=== PATIENT | female | born 1960 | race Caucasian/White ===

== ENCOUNTER 2018-11-27 12:56 | Inpatient (IN) | payer MEDICARE, OTHER, MEDICAID ==
[2018-11-27] MEDS ORDERED: NS 0.9% 1000 ML* 1,000 ML IV ONE (13:38)
[2018-11-27] MEDS ORDERED: Piperacillin/Tazobac ADVAN(*) 3.375 GM in NS 0.9% 100 ML* 100 ML IVPB ONE (13:41)
--- NOTE | 2018-11-27 13:54 | ED ---
Respiratory - HPI Summary HPI Summary: A 58 y/o female acccompanied by an aid presents to the ED c/o SOB and cough. In the ED room, the patient has a pulse of 108 BPM, O2 saturation of 93%, and respiration of 20. As per triage, "Pt has had cough and congestion for a few weeks, today pt sounds the worst, pt's aide states". According to the nurse, the patient sounded very congested for the past couple weeks, however, early this morning the patient had trouble breathing and sounded like she has lots of mucous. Patient's aid denies any fever. [facility] Service: Patient sounds very phlegmy/raspy, slight SOB. LEVEL 5 CAVEAT. Home Medications Medication Instructions Recorded Confirmed Type Aspirin EC TAB* [Ecotrin EC TAB*] 325 mg PO DAILY 11/27/18 11/27/18 History Bacitracin OINTMENT DIANN* 1 applic TOPICAL DAILY PRN 11/27/18 11/27/18 History Calamine LOTION* 1 applic .SEE ORDER BID 11/27/18 11/27/18 History Calcium Carbonate/Vitamin D3 1 each PO BID 11/27/18 11/27/18 History [Calcium 600 + Vit D Tablet] Clindamycin 1% TOPICAL(NF) 1 % EX BID 11/27/18 11/27/18 History [Cleocin-T 1% TOPICAL(NF)] Diazepam TAB(*) [Valium TAB(*)] 7.5 mg PO TID PRN 11/27/18 11/27/18 History Gabapentin CAP(*) [Neurontin 100 200 mg PO BEDTIME 11/27/18 11/27/18 History mg CAP(*)] Levothyroxine TAB* [Synthroid TAB*] 50 mcg PO DAILY 11/27/18 11/27/18 History Mometasone Furoate 0.1 % EX DAILY PRN 11/27/18 11/27/18 History Ofloxacin 0.3% (Ear Drop)* [Floxin 2 drop OTIC WEEKLY 11/27/18 11/27/18 History 0.3% OTIC.NABOR (Ear Drop)] Polyethylene Glycol 3350 BTL* 17 gm PO ONCE 11/27/18 11/27/18 History [Miralax] Raloxifene HCl [Evista] 60 mg PO DAILY 11/27/18 11/27/18 History diPHENhydraMINE PO* [Benadryl PO 25 mg PO Q6H PRN 11/27/18 11/27/18 History 25 MG TAB*] guaiFENesin/CODIEN 100MG-10MG* 10 ml PO Q6H PRN 11/27/18 11/27/18 History [Robitussin AC 100Mg-10Mg*] oxyCODONE TAB* [Roxycodone TAB 5 5 mg PO Q6H PRN 11/27/18 11/27/18 History mg*] - History of Current Complaint Chief Complaint: EDRespiratoryDistress Stated Complaint: DIFF BREATHING Time Seen by Provider: 11/27/18 13:17 Hx Obtained From: Family/Armament Mechanic - AID Hx From Patient Unobtainable Due To: Other - PATIENT HAS DOWN SYNDROME. Pain Intensity: 0 - Allergy/Home Medications Allergies/Adverse Reactions: Allergies Allergy/AdvReac Type Severity Reaction Status Date / Time Cephalosporins Allergy Rash Verified 11/27/18 13:46 ciprofloxacin [From Cipro] Allergy Rash Verified 11/27/18 13:46 erythromycin base Allergy Rash Verified 11/27/18 13:46 Macrolide Antibiotics Allergy Rash Verified 11/27/18 13:46 Penicillins Allergy Rash Verified 11/27/18 13:46 sulfamethizole Allergy Rash Verified 11/27/18 13:46 sulfamethoxazole Allergy Rash Verified 11/27/18 13:46 [From Bactrim] trimethoprim [From Bactrim] Allergy Rash Verified 11/27/18 13:46 Home Medications: Home Medications Aspirin EC TAB* [Ecotrin EC TAB*] 325 mg PO DAILY 11/27/18 [History Confirmed ] Bacitracin OINTMENT DIANN* 1 applic TOPICAL DAILY PRN 11/27/18 [History Confirmed 11/27/18] Calamine LOTION* 1 applic .SEE ORDER BID 11/27/18 [History Confirmed 11/27/18] Calcium Carbonate/Vitamin D3 [Calcium 600 + Vit D Tablet] 1 each PO BID [History Confirmed 11/27/18] Clindamycin 1% TOPICAL(NF) [Cleocin-T 1% TOPICAL(NF)] 1 % EX BID 11/27/18 [ History Confirmed 11/27/18] Diazepam TAB(*) [Valium TAB(*)] 7.5 mg PO TID PRN 11/27/18 [History Confirmed ] Gabapentin CAP(*) [Neurontin 100 mg CAP(*)] 200 mg PO BEDTIME 11/27/18 [History Confirmed 11/27/18] Levothyroxine TAB* [Synthroid TAB*] 50 mcg PO DAILY 11/27/18 [History Confirmed 11/27/18] Mometasone Furoate 0.1 % EX DAILY PRN 11/27/18 [History Confirmed 11/27/18] Ofloxacin 0.3% (Ear Drop)* [Floxin 0.3% OTIC.NABOR (Ear Drop)] 2 drop OTIC WEEKLY 11/27/18 [History Confirmed 11/27/18] Polyethylene Glycol 3350 BTL* [Miralax] 17 gm PO ONCE 11/27/18 [History Confirmed 11/27/18] Raloxifene HCl [Evista] 60 mg PO DAILY 11/27/18 [History Confirmed 11/27/18] diPHENhydraMINE PO* [Benadryl PO 25 MG TAB*] 25 mg PO Q6H PRN 11/27/18 [History Confirmed 11/27/18] guaiFENesin/CODIEN 100MG-10MG* [Robitussin AC 100Mg-10Mg*] 10 ml PO Q6H PRN 04/10 [History Confirmed 11/27/18] oxyCODONE TAB* [Roxycodone TAB 5 mg*] 5 mg PO Q6H PRN 11/27/18 [History Confirmed 11/27/18] PMH/Surg Hx/FS Hx/Imm Hx Endocrine/Hematology History: Reports: Hx Thyroid Disease - HYPO Denies: Hx Diabetes Cardiovascular History: Reports: Hx Coronary Artery Disease - ON MEDS, Other Cardiovascular Problems/Disorders - HIGH CHOLESTEROL Denies: Hx Hypertension, Hx Pacemaker/ICD, Hx Valvular Heart Disease Respiratory History: Denies: Other Respiratory Problems/Disorders History: Denies: Hx Renal Disease Musculoskeletal History: Reports: Hx Osteoporosis Denies: Hx Rheumatoid Arthritis Sensory History: Reports: Hx Cataracts - JAMES, Hx Contacts or Glasses - GLASSES, Hx Hearing Aid - BONE 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 CATARACTS. Psychiatric History: Reports: Hx Anxiety Denies: Hx Panic Disorder - Surgical History Surgery Procedure, Year, and Place: multiple sx on ears(TUBES) , nose and throat. LAST 1990. HYSTERECTOMY, 1977. Lt THIGH - BOIL REMOVED Hx Anesthesia Reactions: No Infectious Disease History: No Infectious Disease History: Denies: Traveled Outside the [place] in Last 30 Days - Family History Known Family History: Positive: Unknown - HX UNOBTAINABLE FROM PATIENT. AID IS NOT SURE. - Social History Alcohol Use: None Substance Use Type: Reports: None Smoking Status (MU): Never Smoked Tobacco Have You Smoked in the Last Year: No Review of Systems Negative: Fever Positive: Shortness Of Breath, Cough, Other - POSITIVE: CONGESTION All Other Systems Reviewed And Are Negative: No Physical Exam - Summary Physical Exam Summary: VITAL SIGNS: Reviewed. GENERAL: Patient is elderly wheel-chair bound female who is lying comfortable in the stretcher. Patient is having some difficulty breathing. HEAD AND FACE: No signs of trauma. No ecchymosis, hematomas or skull depressions. No sinus tenderness. EYES: PERRLA, EOMI x 2, No injected conjunctiva, no nystagmus. EARS: Hearing grossly intact. Ear canals and tympanic membranes are within normal limits. MOUTH: Oropharynx within normal limits. NECK: Supple, trachea is midline, no adenopathy, no JVD, no carotid bruit, no c- spine tenderness, neck with full ROM. CHEST: Symmetric, no tenderness at palpation LUNGS: Bilateral respiratory distress. Crackles in bases of both lungs. CVS: Regular rate and rhythm, S1 and S2 present, no murmurs or gallops appreciated. ABDOMEN: Soft, non-tender. No signs of distention. No rebound no guarding, and no masses palpated. Bowel sounds are normal. EXTREMITIES: FROM in all major joints, no edema, no cyanosis or clubbing. NEURO: Alert and oriented x 3. No acute neurological deficits. Speech is normal and follows commands. SKIN: Dry and warm LEVEL 5 CAVEAT Triage Information Reviewed: Yes Vital Signs On Initial Exam: Initial Vitals Temp Pulse Resp BP Pulse Ox 96.9 F 95 18 105/53 92 11/27/18 12:59 11/27/18 12:59 11/27/18 12:59 11/27/18 12:59 11/27/18 12:59 Vital Signs Reviewed: Yes Diagnostics - Vital Signs Vital Signs Temp Pulse Resp BP Pulse Ox 11/27/18 12:59 96.9 F 95 18 105/53 92 - Laboratory Result Diagrams: 11/28/18 06:51 11/27/18 14:00 Lab Statement: Any lab studies that have been ordered have been reviewed, and results considered in the medical decision making process. - Radiology CXR Radiology Interpretation Completed By: Radiologist Summary of Radiographic Findings: GROSSLY CLEAR LUNGS BILATERALLY LIMITED BY PATIENT POSITIONING AND INCOMPLETE INSPIRATORY EFFORT. ED PHYSICIAN REVIEWED THIS RADIOLOGY REPORT. - EKG 1514 Cardiac Rate: Tachycardia - 107 BPM EKG Rhythm: Sinus Tachycardia - 107 BPM Summary of EKG Findings: NO ST ELEVATIONS. Disposition - Course Assessment/Plan: A 58 y/o female accompanied by an aid presents to the ED c/o SOB and cough. In the ED room, the patient has a pulse of 108 BPM, O2 saturation of 93%, and respiration of 20. As per triage, "Pt has had cough and congestion for a few weeks, today pt sounds the worst, pt's aide states". According to the nurse, the patient sounded very congested for the past couple weeks, however, early this morning the patient had trouble breathing and sounded like she has lots of mucous. Patient's aid denies any fever. [facility]: Patient sounds very phlegmy/raspy, slight SOB. Blood work shows WBCs of 18.6, hemoglobin 16, hematocrit 48 and platelets 194. Leukocytes 128 AST of 60. Name T of 79. CRP is only 6.19. Influenza A and B is negative. Chest x-ray impression: Grossly clear lung bilateral limited by the patient positioning and incomplete inspiratory effort. I believe that the patient may have had an aspiration pneumonitis. Therefore the patient was placed in IV fluids 30 ccs per KG since the patient may be sepsis criteria and she was started on Zosyn. It is documented the patient is allergic to penicillin however she has multiple allergies therefore we get associated, we close monitored and the patient did not develop any allergic reaction. At this point I discussed my physical exam, findings and test results with Dr. Salvador from the hospital services who accepted the patient for admission. The patient is more stable at admission time. - Diagnoses Provider Diagnoses: Aspiration pneumonitis, Sepsis - Physician Notifications Discussed Care Of Patient With: Santi Salvador Time Discussed With Above Provider: 14:53 Instructed by Provider To: Other - ACCEPTS PATIENT FOR ADMISSION. - Critical Care Time Critical Care Time: 30-74 min Discharge - Sign-Out/Discharge Documenting (check all that apply): Patient Departure - ADMIT, Sign-Out Patient - [place] Signing out patient TO: Santi Modesto Receiving patient FROM: Maco Felix - Discharge Plan Condition: Stable Disposition: ADMITTED TO [facility] - Billing Disposition and Condition Condition: STABLE Disposition: Admitted to [facility] - Attestation Statements Document Initiated by Scribe: Yes Documenting Scribe: Martin Cortez Provider For Whom Scribe is Documenting (Include Credential): Maco Felix MD Scribe Attestation: Martin Hernandez, scribed for Maco Felix MD on 11/28/18 at 0904. Scribe Documentation Reviewed: Yes Provider Attestation: The documentation as recorded by the scribeMartin accurately reflects the service I personally performed and the decisions made by me, Maco Fleix MD Status of Scribe Document: Viewed Attestations Scribe Attestation: IDr. Felix personally performed the services described in this documentation as scribed in my presence and it is both accurate and complete. User Type: Provider with Scribe Provider Attestation: The documentation recorded by the scribe accurately reflects the service I personally performed and the decisions made by me.
[2018-11-27 14:12] LABS: Hematocrit 48 % (35-47); Mean Corpuscular HGB Conc 33 g/dl (31-36); Mean Corpuscular Hemoglobin 36 pg (27-31); Mean Corpuscular Volume 107 fL (80-97); Mean Platelet Volume 8.6 fL (7.4-10.4); Platelet Count 194 10^3/ul (150-450); Red Cell Distribution Width 15 % (10.5-15); White Blood Count 18.6 10^3/ul (3.5-10.8)
[2018-11-27 14:26] LABS: Albumin 3.5 g/dL (3.2-5.2); Albumin/Globulin Ratio 1.2 (1-3); BUN/Creatinine Ratio 24.6 (8-20); C Reactive Protein 6.19 mg/L (<8.01); Calcium 8.7 mg/dL (8.6-10.3); EGFR Non-African American 101.5 (>60); Total Bilirubin 0.3 mg/dL (0.2-1.0); Total Protein 6.5 g/dL (6.4-8.9)
[2018-11-27 14:38] LABS: ABS Basophils 0 10^3/ul (0-0.2); ABS Eosinophils 0 10^3/ul (0-0.6); ABS Lymphocytes 1.3 10^3/ul (1.0-4.8); ABS Monocytes 1.4 10^3/ul (0-0.8); ABS Neutrophils 15.9 10^3/ul (1.5-7.7); ABS Nucleated RBC 0 10^3/ul; Eosinophil % 0.2 %; Lymphocyte % 6.9 %; Nucleated Red Blood Cells % 0.2
[2018-11-27 15:07] LABS: Potassium 4.7 mmol/L (3.5-5.0)
[2018-11-27] MEDS ORDERED: oxyCODONE TAB* 5 MG TAB PO PRN (15:37)
[2018-11-27] MEDS ORDERED: diPHENhydraMINE PO* 25 MG PO PRN (15:37)
[2018-11-27] MEDS ORDERED: guaiFENesin/CODIEN 100MG-10MG* 5 ML UDC PO PRN (15:37)
[2018-11-27] MEDS ORDERED: Bacitracin OINTMENT PAK TOPICAL PRN (15:37)
[2018-11-27] MEDS ORDERED: Diazepam TAB(*) 5 MG PO PRN (15:37)
[2018-11-27] MEDS ORDERED: Triamcinolone 0.025% OINT * 15 GM TUBE TOPICAL PRN (15:37)
[2018-11-27] MEDS ORDERED: Ofloxacin 0.3% (Ear Drop)* 5 ml BTL SCH (16:00)
[2018-11-27] MEDS ORDERED: Polyethylene Glycol 3350* 17 GM PACKET PO ONE (16:00)
[2018-11-27 17:22] LABS: Urine Appearance Cloudy; Urine Bilirubin Negative (Negative); Urine Blood Negative (Negative); Urine Color Yellow; Urine Glucose Negative (Negative); Urine Ketones Negative (Negative); Urine Nitrite Negative (Negative); Urine Protein Negative (Negative); Urine Specific Gravity 1.016 (1.010-1.030); Urine Urobilinogen Negative (Negative)
--- NOTE | 2018-11-27 17:52 | HP ---
CC: Dr. Irving Yee HISTORY AND PHYSICAL: DATE OF ADMISSION: 11/27/18 PRIMARY CARE PROVIDER: Dr. Irving Yee. CHIEF COMPLAINT: Cough and congestion for a few weeks. HISTORY OF PRESENT ILLNESS: This is a 58-year-old female with past medical history significant for Down syndrome, nonverbal, OCD, hypothyroidism, neuropathy, left occipital stroke, who has been living at a [place] [facility] [place], she is completely dependent for her activities of daily living, who was brought in [place] the [place] [facility] [place] because of cough and congestion. Staff member from the [place] [facility] [place] is present, history cannot be obtained from the patient and is therefore obtained from the staff member. They report that the patient has been having cough and congestion for several weeks; however, they did not note any fever or trouble breathing. They brought her to the hospital now because the symptoms are not getting better and have been progressive. It is hard to get a full history as the patient is nonverbal and is not communicative due to Down syndrome. PAST MEDICAL HISTORY: 1. Down syndrome. 2. OCD. 3. Hypothyroidism. 4. Hyperlipidemia. 5. Left occipital stroke. 6. Right peroneal neuropathy. 7. Nonverbal state. 8. Osteoporosis. PAST SURGICAL HISTORY: Hysterectomy. MEDICATIONS: Home medications include: 1. Calcium carbonate 600 mg/vitamin D tablet twice a day. 2. Aspirin 325 mg daily. 3. Bacitracin ointment topical. 4. Calamine lotion as needed. 5. Clindamycin topical twice a day. 6. Diazepam 5 mg. 7. Valium tablet 7.5 mg 3 times a day. 8. Benadryl 25 mg every 6 hours as needed. 8. Gabapentin 200 mg at bedtime. 9. Guaifenesin/codeine 10 mL every 6 hours as needed. 10. Levothyroxine 50 mcg daily. 11. Mometasone furoate 15 g cream as needed. 12. Ofloxacin 0.3% ear drops 2 drops twice daily both ears. 13. Oxycodone 5 mg every 6 hours as needed for pain. 14. Polyethylene glycol 17 g as needed. 15. Raloxifene 60 mg daily for osteoporosis. FAMILY HISTORY: Cannot be obtained as the patient cannot give history. SOCIAL HISTORY: The patient is from a [place], does not smoke, no use of alcohol or drugs. The patient is not , does not work. REVIEW OF SYSTEMS: Cannot be obtained due to the patient being nonverbal. PHYSICAL EXAMINATION GENERAL APPEARANCE: She is awake and alert, noncommunicative, sitting on a chair, in no acute distress. VITAL SIGNS: Blood pressure of 105/53, heart rate of 95, respiratory rate of 18 , pulse ox of 92% on room air, temperature of 96.9 Fahrenheit temporal. HEENT: Pupils equal, round, reactive to light. Oral mucosa is dry. RESPIRATORY: She was placed on oxygen at 2 L nasal cannula. Effort is normal. No use of accessory muscles. Coarse breath sounds with scattered rhonchi. CARDIAC: Regular rate and rhythm. No murmurs. Dorsalis pedis 2+ bilaterally. No lower extremity edema. ABDOMEN: Bowel sounds are normoactive in all 4 quadrants. Abdomen is soft, nontender, nondistended. MUSCULOSKELETAL: There is no clubbing, cyanosis, or edema. NEUROLOGICAL: Cannot be fully distinguished. The patient is awake and alert. Cannot determine orientation as the patient is nonverbal, does not exactly follow commands. SKIN: No rashes. DIAGNOSTIC STUDIES/LAB DATA: WBC of 18.6, hemoglobin of 16, hematocrit of 48, platelets of 194. Sodium of 137, potassium of 4.7, chloride of 104, bicarbonate of 26, BUN of 15, creatinine of 0.61, glucose of 128, lactic acid of 1.2. AST 63, ALT of 79. , CRP of 6.19, BNP of 94. Albumin of 3.5. Influenza A and B are negative. Chest x-ray shows clear lungs bilaterally, limited by the patient's positioning and incomplete respiratory effort. EKG shows sinus tachycardia. ASSESSMENT AND PLAN: This is a 58-year-old female, with Down syndrome, nonverbal, who presents to the emergency room because of cough and congestion persistent for the past 2 weeks. The patient is nonverbal, she requires puree with honey- thickened liquid spoon fed. 1. Cough and congestion. The patient does have leukocytosis. She is requiring some oxygen currently. We will start the patient on Zosyn for possible aspiration pneumonia/pneumonitis. We will check the patient's sputum culture, blood culture has been sent. 2. Nonverbal state/Down syndrome. Continue supportive care, honey-thickened diet with pureed diet. 3. Unspecified hypothyroidism. Continue levothyroxine. 4. Neuropathy. Continue gabapentin. 5. History of left occipital stroke. Continue aspirin. 6. Continue other home medications. 7. DVT prophylaxis: We will start the patient on stockings. [id number]/[facility] #: [id number] JOSH
[2018-11-27] MEDS: NS 0.9% 1000 ML* 1,000 ML IV SCH (17:55)
[2018-11-27] MEDS: Piperacillin/Tazobac ADVAN(*) 3.375 GM in NS 0.9% 100 ML* 100 ML IVPB SCH (18:31)
[2018-11-27] MEDS: Calamine LOTION* 120 ML SCH (21:44)
[2018-11-27] MEDS: Clindamycin 1% TOPICAL(NF) TOPICAL SCH (22:09)
[2018-11-27] MEDS: Gabapentin CAP(*) 100 MG PO SCH (22:10)
[2018-11-28] MEDS: Albuterol/Ipratropium NEB.SOL* Albuterol 2.5 MG/Ipratropium 0.5 MG 3 ML INH SCH ×4 (01:02→18:05)
[2018-11-28] MEDS: Piperacillin/Tazobac ADVAN(*) 3.375 GM in NS 0.9% 100 ML* 100 ML IVPB SCH ×3 (02:07→18:21)
[2018-11-28] MEDS: Levothyroxine TAB* 50 MCG TAB PO SCH ×2 (05:39→07:51)
[2018-11-28 07:30] LABS: ABS Basophils 0 10^3/ul (0-0.2); ABS Eosinophils 0 10^3/ul (0-0.6); ABS Lymphocytes 1.2 10^3/ul (1.0-4.8); ABS Monocytes 1.7 10^3/ul (0-0.8); ABS Neutrophils 18.5 10^3/ul (1.5-7.7); ABS Nucleated RBC 0 10^3/ul; Eosinophil % 0 %; Hematocrit 45 % (35-47); Lymphocyte % 5.7 %; Mean Corpuscular HGB Conc 33 g/dl (31-36); Mean Corpuscular Hemoglobin 35 pg (27-31); Mean Corpuscular Volume 106 fL (80-97); Mean Platelet Volume 8.8 fL (7.4-10.4); Nucleated Red Blood Cells % 0.1; Platelet Count 182 10^3/ul (150-450); Red Blood Count 4.27 10^6/ul (4.00-5.40); Red Cell Distribution Width 15 % (10.5-15); White Blood Count 21.5 10^3/ul (3.5-10.8)
[2018-11-28] MEDS: Calamine LOTION* 120 ML SCH (07:35)
[2018-11-28] MEDS: Clindamycin 1% TOPICAL(NF) TOPICAL SCH (07:36)
[2018-11-28] MEDS: RALOXIFENE 60 MG PO SCH (07:52)
[2018-11-28] MEDS: Aspirin EC TAB* 325 MG PO SCH (07:52)
[2018-11-28] MEDS ORDERED: NS 0.9% 1000 ML* 1,000 ML IV ONE (11:59)
--- NOTE | 2018-11-28 12:14 | PN ---
Subjective Date of Service: 11/28/18 Interval History: Case discussed with nurse, having copious suction. Objective Active Medications: Albuterol/Ipratropium (Duoneb (Albuterol 2.5 Mg/Ipratropium 0.5 Mg)) 1 neb INH RT.[id number] AWAKE [facility] Last Admin: 11/28/18 06:13 Dose: 1 neb Aspirin (Ecotrin Ec Tab*) 325 mg PO DAILY [facility] Last Admin: 11/28/18 07:52 Dose: 325 mg Bacitracin (Bacitracin Ointment Santiago*) 1 applic TOPICAL DAILY PRN PRN Reason: RASH Calamine (Calamine Lotion*) 1 applic .SEE ORDER BID [facility] Last Admin: 11/28/18 07:35 Dose: Not Given Clindamycin Phosphate (Cleocin-T 1% Topical(Nf)) 1 applic TOPICAL BID [facility] Last Admin: 11/28/18 07:36 Dose: Not Given Diazepam (Valium Tab(*)) 7.5 mg PO TID PRN PRN Reason: AGITATION Diphenhydramine HCl (Benadryl Po*) 25 mg PO Q6H PRN PRN Reason: Allergy Symptoms Gabapentin (Neurontin Cap(*)) 200 mg PO BEDTIME [facility] Last Admin: 11/27/18 22:10 Dose: Not Given Guaifenesin/Codeine Phosphate (Robitussin Ac 100mg-10mg*) 10 ml PO Q6H PRN PRN Reason: COUGH Sodium Chloride (Ns 0.9% 1000 Ml*) 1,000 mls @ 75 mls/hr IV Q8H [facility] Last Admin: 11/27/18 17:55 Dose: 75 mls/hr Piperacillin Sod/Tazobactam (Sod 3.375 gm/ Sodium Chloride) 100 mls @ 25 mls/ hr IVPB Q8H [facility] Last Admin: 11/28/18 10:34 Dose: 25 mls/hr Sodium Chloride (Ns 0.9% 1000 Ml*) 1,000 mls @ 1,000 mls/hr IV .PER RATE ONE Stop: 11/28/18 12:58 Vancomycin HCl 1,000 mg/ (Sodium Chloride) 250 mls @ 166.667 mls/hr IVPB ONCE [facility]; Protocol Stop: 11/28/18 23:59 Levothyroxine Sodium (Synthroid Tab*) 50 mcg PO 0600 [facility] Last Admin: 11/28/18 07:51 Dose: 50 mcg Ofloxacin (Floxin 0.3% Otic.Maricruz*) 2 drop .SEE ORDER WEEKLY [facility] Oxycodone HCl (Roxycodone Tab*) 5 mg PO Q6H PRN PRN Reason: PAIN Pharmacy Consult (Vancomycin Per Pharmacy*) 1 note FOLLOW UP .VANC PER PHARMACY [facility] Raloxifene HCl (Evista(Nf)) 60 mg PO DAILY [facility]; Protocol Last Admin: 11/28/18 07:52 Dose: 60 mg Triamcinolone Acetonide (Triamcinolone 0.025% Oint *) 1 applic TOPICAL DAILY PRN PRN Reason: RASH Vital Signs - 8 hr 11/28/18 11/28/18 11/28/18 06:19 07:00 07:39 Temperature 99.3 F Pulse Rate 108 92 116 Respiratory 18 102 Rate Blood Pressure 96/50 (mmHg) O2 Sat by Pulse 92 22 94 Oximetry 11/28/18 11/28/18 11/28/18 08:00 08:13 08:41 Temperature 98.8 F Pulse Rate 103 Respiratory 37 38 Rate Blood Pressure (mmHg) O2 Sat by Pulse 94 92 Oximetry Oxygen Devices in Use Now: Large Volume Nebulizer Appearance: Lying in bed, not in distress, slighlty diaphoretic Respiratory: - - coarse breath sounds with diffuse rhonchi, having copious secretions suctioned Cardiovascular: RRR Abdominal: NL Sounds; No Tenderness; No Distention Extremities: No Edema Result Diagrams: 11/28/18 06:51 11/27/18 14:00 Microbiology and Other Data: Microbiology 11/27/18 18:00 Nasal Screen MRSA (PCR) - Final Nasal Mrsa Not Detected 11/27/18 13:39 Influenza Types A,B Antigen - Final Nasal Specimen received for Influenza A/B Molecular testing Assess/Plan/Problems-Billing Assessment: - Patient Problems (1) Sepsis due to pneumonia Current Visit: Yes Status: Acute Code(s): J18.9 - PNEUMONIA, UNSPECIFIED ORGANISM; A41.9 - SEPSIS, UNSPECIFIED ORGANISM SNOMED Code(s): 07347915 Comment: SLighlty worse today, continue zosyn Day 2, added vancomycin today. asked RN to send secretion for culture. one liter IV bolus ordered. Will get cxr tomorrow 'blood culture negative thus far. (2) Down syndrome Current Visit: Yes Status: Acute Code(s): Q90.9 - DOWN SYNDROME, UNSPECIFIED SNOMED Code(s): 46313393 Comment: supportive care, non-verbal, dependent patient. puree diet/honey thickended spoon fed. (3) Hypothyroid Current Visit: Yes Status: Acute Code(s): E03.9 - HYPOTHYROIDISM, UNSPECIFIED SNOMED Code(s): 15892727 Comment: on levothyroxine (4) History of stroke Current Visit: Yes Status: Acute Code(s): Z86.73 - PRSNL HX OF TIA (TIA), AND CEREB INFRC W/O RESID DEFICITS SNOMED Code(s): 912538924 Comment: On aspirin (5) DVT prophylaxis Current Visit: Yes Status: Acute Code(s): EUW2533 - SNOMED Code(s): 372543944
[2018-11-28] MEDS ORDERED: Vancomycin per Pharmacy* NOTE FOLLOW UP SCH (13:00)
[2018-11-28] MEDS: NS 0.9% 1000 ML* 1,000 ML IV SCH (13:14)
[2018-11-28] MEDS: Vancomycin(*) 1,000 MG in NS 0.9% 250 ML* 250 ML IVPB ONE ×2 (13:14→15:10)
[2018-11-28] MEDS ORDERED: Vancomycin(*) 1,000 MG in NS 0.9% 250 ML* 250 ML IVPB ONE (14:30)
[2018-11-28] MEDS ORDERED: Morphine INJ* 2 MG/ML 1 ML SYRINGE (TWO MG - NEW SYRINGE VERSION) IV PRN (19:51)
[2018-11-28] MEDS: Vancomycin(*) 750 MG in NS 0.9% 250 ML* 250 ML IVPB SCH (23:25)
[2018-11-29] MEDS: Clindamycin 1% TOPICAL(NF) TOPICAL SCH ×3 (00:01→23:08)
[2018-11-29] MEDS: Gabapentin CAP(*) 100 MG PO SCH ×2 (00:01→21:47)
[2018-11-29] MEDS: Albuterol/Ipratropium NEB.SOL* Albuterol 2.5 MG/Ipratropium 0.5 MG 3 ML INH SCH ×4 (00:03→17:52)
[2018-11-29] MEDS: Piperacillin/Tazobac ADVAN(*) 3.375 GM in NS 0.9% 100 ML* 100 ML IVPB SCH ×3 (02:07→18:00)
[2018-11-29] MEDS: Levothyroxine TAB* 50 MCG TAB PO SCH (05:21)
[2018-11-29 07:34] LABS: ABS Basophils 0.1 10^3/ul (0-0.2); ABS Eosinophils 0 10^3/ul (0-0.6); ABS Monocytes 0.7 10^3/ul (0-0.8); ABS Neutrophils 9.7 10^3/ul (1.5-7.7); ABS Nucleated RBC 0 10^3/ul; Eosinophil % 0.4 %; Hematocrit 39 % (35-47); Lymphocyte % 15.6 %; Mean Corpuscular HGB Conc 33 g/dl (31-36); Mean Corpuscular Hemoglobin 36 pg (27-31); Mean Corpuscular Volume 107 fL (80-97); Mean Platelet Volume 9.2 fL (7.4-10.4); Nucleated Red Blood Cells % 0; Platelet Count 161 10^3/ul (150-450); Red Blood Count 3.65 10^6/ul (4.00-5.40); Red Cell Distribution Width 15 % (10.5-15); White Blood Count 12.5 10^3/ul (3.5-10.8)
[2018-11-29 07:48] LABS: BUN/Creatinine Ratio 11.5 (8-20); Calcium 8.1 mg/dL (8.6-10.3)
[2018-11-29] MEDS: Vancomycin(*) 750 MG in NS 0.9% 250 ML* 250 ML IVPB SCH ×3 (08:36→23:06)
[2018-11-29] MEDS: NS 0.9% 1000 ML* 1,000 ML IV SCH ×4 (08:37→15:38)
--- NOTE | 2018-11-29 09:16 | PN ---
Subjective Date of Service: 11/29/18 Interval History: No acute issues overnight. Parents came in from [place], discussed with them the status and the plan, all questions answered. She is nonverbal and cannot contribute to history. Objective Active Medications: Albuterol/Ipratropium (Duoneb (Albuterol 2.5 Mg/Ipratropium 0.5 Mg)) 1 neb INH [id number] AWAKE [facility] Last Admin: 11/29/18 06:31 Dose: 1 neb Aspirin (Ecotrin Ec Tab*) 325 mg PO DAILY [facility] Last Admin: 11/28/18 07:52 Dose: 325 mg Bacitracin (Bacitracin Ointment Santiago*) 1 applic TOPICAL DAILY PRN PRN Reason: RASH Calamine (Calamine Lotion*) 1 applic .SEE ORDER BID [facility] Last Admin: 11/29/18 00:00 Dose: Not Given Clindamycin Phosphate (Cleocin-T 1% Topical(Nf)) 1 applic TOPICAL BID [facility] Last Admin: 11/29/18 00:01 Dose: Not Given Diazepam (Valium Tab(*)) 7.5 mg PO TID PRN PRN Reason: AGITATION Diphenhydramine HCl (Benadryl Po*) 25 mg PO Q6H PRN PRN Reason: Allergy Symptoms Gabapentin (Neurontin Cap(*)) 200 mg PO BEDTIME [facility] Last Admin: 11/29/18 00:01 Dose: Not Given Guaifenesin/Codeine Phosphate (Robitussin Ac 100mg-10mg*) 10 ml PO Q6H PRN PRN Reason: COUGH Sodium Chloride (Ns 0.9% 1000 Ml*) 1,000 mls @ 75 mls/hr IV Q8H [facility] Last Admin: 11/29/18 08:37 Dose: 75 mls/hr Piperacillin Sod/Tazobactam (Sod 3.375 gm/ Sodium Chloride) 100 mls @ 25 mls/ hr IVPB Q8H [facility] Last Admin: 11/29/18 02:07 Dose: 25 mls/hr Vancomycin HCl 750 mg/ Sodium (Chloride) 250 mls @ 166.667 mls/hr IVPB Q8H [facility] Last Admin: 11/29/18 08:36 Dose: 166.667 mls/hr Levothyroxine Sodium (Synthroid Tab*) 50 mcg PO 0600 [facility] Last Admin: 11/29/18 05:21 Dose: Not Given Morphine Sulfate (Morphine Inj ((Syringe))*) 2 mg IV Q4H PRN PRN Reason: PAIN - MILD Last Admin: 11/28/18 20:17 Dose: 2 mg Ofloxacin (Floxin 0.3% Otic.Maricruz*) 2 drop .SEE ORDER WEEKLY [facility] Oxycodone HCl (Roxycodone Tab*) 5 mg PO Q6H PRN PRN Reason: PAIN Pharmacy Consult (Vancomycin Per Pharmacy*) 1 note FOLLOW UP .VANC PER PHARMACY [facility] Pharmacy Profile Note (Vancomycin Trough Check) 1 note FOLLOW UP 1500 ONE Stop: 11/29/18 15:01 Raloxifene HCl (Evista(Nf)) 60 mg PO DAILY [facility]; Protocol Last Admin: 11/28/18 07:52 Dose: 60 mg Triamcinolone Acetonide (Triamcinolone 0.025% Oint *) 1 applic TOPICAL DAILY PRN PRN Reason: RASH Vital Signs - 8 hr 11/29/18 11/29/18 11/29/18 03:32 06:36 07:46 Temperature 97.9 F Pulse Rate 96 81 Respiratory 100 20 Rate Blood Pressure 81/48 (mmHg) O2 Sat by Pulse 94 20 89 Oximetry Oxygen Devices in Use Now: Other Appearance: Lying in bed, not in distress. Ears/Nose/Mouth/Throat: Mucous Membranes Moist Respiratory: - - coarse breath sounds. Cardiovascular: RRR Abdominal: NL Sounds; No Tenderness; No Distention Extremities: No Edema Result Diagrams: 11/29/18 07:01 11/29/18 07:01 Microbiology and Other Data: Microbiology 11/27/18 18:00 Nasal Screen MRSA (PCR) - Final Nasal Mrsa Not Detected 11/27/18 13:39 Influenza Types A,B Antigen - Final Nasal Specimen received for Influenza A/B Molecular testing Assess/Plan/Problems-Billing Assessment: - Patient Problems (1) Sepsis due to pneumonia Current Visit: Yes Status: Acute Code(s): J18.9 - PNEUMONIA, UNSPECIFIED ORGANISM; A41.9 - SEPSIS, UNSPECIFIED ORGANISM SNOMED Code(s): 03170965 Comment: WBC trending down, clinically improving. Continue Vanc Day 2, zosyn Day 3 sputum culutre grew GPC and GPB blood culture negative thus far. Concerened about aspiration, will get swallow evaluation. (2) Down syndrome Current Visit: Yes Status: Acute Code(s): Q90.9 - DOWN SYNDROME, UNSPECIFIED SNOMED Code(s): 88928271 Comment: supportive care, non-verbal, dependent patient. puree diet/honey thickended spoon fed. (3) Hypothyroid Current Visit: Yes Status: Acute Code(s): E03.9 - HYPOTHYROIDISM, UNSPECIFIED SNOMED Code(s): 23932897 Comment: on levothyroxine (4) History of stroke Current Visit: Yes Status: Acute Code(s): Z86.73 - PRSNL HX OF TIA (TIA), AND CEREB INFRC W/O RESID DEFICITS SNOMED Code(s): 624022006 Comment: On aspirin (5) DVT prophylaxis Current Visit: Yes Status: Acute Code(s): VSL5150 - SNOMED Code(s): 622616477
[2018-11-29] MEDS ORDERED: EPINEPHrine,Rac 2.25% NEB.SOL* 0.5 ML INH PRN ×2 (09:40→10:02)
[2018-11-29] MEDS ORDERED: EPINEPHrine,Rac 2.25% NEB.SOL* 0.5 ML INH ONE (10:00)
[2018-11-29] MEDS ORDERED: methylPREDNISolone SOD 40 MG* 1 ML VIAL ONE (10:08)
[2018-11-29] MEDS: methylPREDNISolone 125 MG* 2 ML VIAL IV SCH ×2 (10:12→18:01)
[2018-11-29] MEDS ORDERED: Morphine VIAL* 4 MG/ML VIAL (1 ml vial) ONE (10:39)
[2018-11-29] MEDS: Aspirin EC TAB* 325 MG PO SCH (10:43)
[2018-11-29] MEDS: Calamine LOTION* 120 ML SCH ×3 (10:43→21:47)
[2018-11-29] MEDS: RALOXIFENE 60 MG PO SCH (10:44)
--- NOTE | 2018-11-29 13:22 | PN ---
Date of Service: 11/29/18 - HD 3 Critical Care Services: 58 yo F with PMH including Downs syndrome, L occipital CVA, right peroneal neuropathy was brought to [facility] on 11/27 from the [facility] with cough and congestion x several weeks, now progressing. On exam she was hemodynamically stable, nonlabored breathing, scattered rhonci on auscultation, otherwise at baseline. WBC elevated at 18.6. Latic acid 1.2. Influenza screen negative. She was admitted to the medical service for further care and started on Zosyn for possible aspiration pneumonia/pneumonitis. Pancultured. 11/28: Requiring frequent suctioning for copious secretions. Vancomycin added. Repeat sputum cultures send. 11/29: Developed increased work of breathing and stridorous upper airway noise. Given racemic epi x 2 with minimal improvement. Started on IV steriods for possible laryngeal/tracheal edema secondary to suctioning. Receiving scheduled nebs. Transferred to ICU for Vapotherm and further care. Vital Signs: Temp Pulse Resp BP SpO2 FiO2 98.3 F 95 17 85/55 95 100 11/29/18 10:30 11/29/18 12:11 11/29/18 12:11 11/29/18 11:15 11/29/18 12:11 11/29 12:11 Physical Exam: Gen: Resting in bed. HEENT: Vapotherm cannula in place Lungs: Using accessory and belly muscles to aid in exhalation. Stridor improving. Work of breathing improved as compared to prior to transfer per RT Cardiac: RRR Abdomen: nondisetended Extremities: warm, dry, no edema Neuro: At baseline nonverbal state. Fluid Balance (Past 24 Hours): I= O= Net Intake & Output 11/27/18 11/28/18 11/29/18 11/30/18 06:59 06:59 06:59 06:59 Intake Total 100 900 Balance 100 900 Weight 90 lb Intake: IVPB 100 360 ABX - VANCOMYCIN 250 ABX - ZOSYN 100 110 Oral 0 540 Other: Estimated Void Large Large Large # Bowel Movements 0 0 Estimated Stool Amount Small # Voids 2 1 1 ADLs: Meal Record Start: 11/27/18 17: 35 Freq: DAILY@0900,1400,1800 Status: Active Protocol: Created 11/27/18 17:35 System (Rec: 11/27/18 17:35 System MED-C09) Document 11/28/18 09:00 [id number] (Rec: 11/28/18 12:05 [id number] MED-C09) Document 11/28/18 14:00 [id number] (Rec: 11/28/18 18:42 [id number] MED-C09) Document 11/28/18 18:00 [id number] (Rec: 11/28/18 21:03 [id number] MED-C09) ADLs: Meal Record Start: 11/29/18 10: 56 Freq: 09,13,18 Status: Active Protocol: Created 11/29/18 10:56 [id number] (Rec: 11/29/18 10:56 [id number] ICU-C07) Intake and Output Start: 11/27/18 13: 03 Freq: Status: Active Protocol: Created 11/27/18 13:03 System (Rec: 11/27/18 13:03 System ED-C24) Intake and Output Start: 11/27/18 17: 35 Freq: DAILY@0600,1400,2200 Status: Active Protocol: Created 11/27/18 17:35 System (Rec: 11/27/18 17:35 System MED-C09) Document 11/27/18 22:00 [id number] (Rec: 11/27/18 22:19 [id number] MED-C09) Document 11/28/18 05:13 [id number] (Rec: 11/28/18 05:14 [id number] MED-C11) Document 11/28/18 14:00 [id number] (Rec: 11/28/18 18:42 [id number] MED-C09) Document 11/28/18 22:00 [id number] (Rec: 11/29/18 01:43 [id number] MED-C09) Document 11/29/18 04:04 [id number] (Rec: 11/29/18 04:05 [id number] MED-C09) Intake and Output Start: 11/29/18 10: 56 Freq: Q1HR Status: Active Protocol: Created 11/29/18 10:56 [id number] (Rec: 11/29/18 10:56 [id number] ICU-C07) Document 11/29/18 11:00 [id number] (Rec: 11/29/18 11:19 [id number] ICU-C07) Labs: Laboratory Results - last 24 hr 11/29/18 11/29/18 07:01 07:01 WBC 12.5 H RBC 3.65 L Hgb 13.0 Hct 39 MCV 107 H MCH 36 H MCHC 33 RDW 15 Plt Count 161 MPV 9.2 Neut % (Auto) 77.5 Lymph % (Auto) 15.6 Walton % (Auto) 6.0 Eos % (Auto) 0.4 Baso % (Auto) 0.5 Absolute Neuts (auto) 9.7 H Absolute Lymphs (auto) 2.0 Absolute Monos (auto) 0.7 Absolute Eos (auto) 0 Absolute Basos (auto) 0.1 Absolute Nucleated RBC 0 Nucleated RBC % 0 Sodium 142 Potassium 4.0 Chloride 110 Carbon Dioxide 27 Anion Gap 5 BUN 6 Creatinine 0.52 Est GFR ( Amer) 147.6 Est GFR (Non-Af Amer) 122.0 BUN/Creatinine Ratio 11.5 Glucose 109 H Calcium 8.1 L Studies: CXR 11/27 - grossly clear lungs bilaterally CXR 11/29 - lungs underinflated. mild prominence of interstitial markings. bilateral infiltrates. New as compared to prior study Nutrition: NPO until respiratory status improved Impression: 58 yo F with Down's syndrome, nonverbal state and prior stroke was admitted on with several week history of cough and congestion. She developed worsened symptoms 11/28 requiring frequent suctioning. On 11/29 she had sudden onset stridor and increased work of breathing. She was transferred to ICU for Vapotherm and further care Plan: Cardiovascular: (1) Sinus tachycardia secondary to sepsis; (2) Hypotension secondary to sepsis; (3) HLD -- HR 81-116 -- SBP 81-120 -- Telemetry -- ASA, held secondary to airway issues Home meds: ASA Pulmonary: (1) Acute hypoxic respiratory failure; (2) Stridor; (3) Bilateral pneumonia -- RR 17-38 -- sats 89-100 on Vapotherm -- wean vapotherm as able -- CXR: bilateral interstitial infiltrates -- Scheduled Duonebs -- Robitussin as needed -- SoluMedrol for stridor -- PRN Morphine for work of breathing Home meds: Robitussin, Mometasone Gastrointestinal: None -- diet: NPO until mental status improved -- bowel regimen: None -- ulcer prophylaxis: Protonix Home meds: Miralax Endocrine: (1) Chronic hypothyroidism -- monitor BGs -- synthroid -- Solumedrol for stridor Home meds: Synthroid Renal: (1) Hypocalcemia; (2) Chronic osteoporosis -- UOP: voiding -- Cr 0.52 from 0.61 -- Lytes Na 142 from 137 K 4.0 Ca 8.1, replace Mag ordered for AM Phos ordered for AM -- IVF: NS @ 75 ml/hr Home meds: calcium carbonate Infectious disease: (1) Sepsis; (2) Bilateral pneumonia -- Tmax 99.3 -- WBC 12.5 from 21.5 -- Micro 11/28 sputum in progress 11/27 MRSA screen negative blood no growth to date Flu screen negative -- ABX Vancomycin Zosyn Home meds: None Neurologic: (1) Lethargy; (2) Down's syndrome; (3) hx of left occipital stroke ; (4) hx of right peroneal neuropathy; (6) Chronic OCD; (7) Chronic nonverbal state -- PRN Valium as needed for agitation -- Gabapentin nightly -- PRN Morphine for work of breathing, discomfort Home meds: valium, oxycodone, gabapentin Hematological: No acute issues -- Hgb 13.0 from 15.0, dilutional, follow trend -- Plt 161 from 182 -- DVT prophylaxis: SQ Lovenox -- ASA, held secondary to airway issues Home meds: ASA Metabolic: No acute issues Home meds: None Other: (1) Chronic osteoporosis -- Raloxifene, discontinue until airway issues improved Home medS: Vitamin D3, Raloxifene Deep vein thrombosis prophylaxis: SQ Lovenox Dietary: Protonix Condition: critical Prognosis: guarded Code status: DNR/DNI Disposition: continue ICU Care Pt's parents updated as to clinical status, move to ICU, and plan of care together with Dr. Ariza. DNR and DNI status re-confirmed. Cumulative time spent in the care of this patient (excluding any procedure time) : at least 60 minutes. Patient care included clinical interview (with patient and/or family), bedside exam of the patient, review of labs, x-rays, and other ancillary data, coordination of (respiratory, nursing care, review of patient's records, discussion regarding patients management with involved consultants, primary physician, pharmacists, and other healthcare personnel (dietary, case management , physical/occupational therapy etc.) Critical Care Time: 60 min
[2018-11-29] MEDS ORDERED: Calcium Gluconate INJ* 1 GM in NS 0.9% 50 ML* 50 ML IVPB ONE (13:33)
[2018-11-29] MEDS: Pantoprazole IV* 40 MG IV SCH (14:48)
[2018-11-29] MEDS ORDERED: Vancomycin Trough Check NOTE FOLLOW UP ONE (15:00)
[2018-11-29] MEDS: Enoxaparin(*) 30 MG/0.3 ML SYR SUBCUT SCH (15:02)
[2018-11-30] MEDS: Albuterol/Ipratropium NEB.SOL* Albuterol 2.5 MG/Ipratropium 0.5 MG 3 ML INH SCH ×4 (01:07→20:50)
[2018-11-30] MEDS: Morphine VIAL* 4 MG/ML VIAL (1 ml vial) IV PRN (01:39)
[2018-11-30] MEDS: methylPREDNISolone 125 MG* 2 ML VIAL IV SCH ×3 (01:40→18:23)
[2018-11-30] MEDS: NS 0.9% 1000 ML* 1,000 ML IV SCH (02:04)
[2018-11-30] MEDS: Piperacillin/Tazobac ADVAN(*) 3.375 GM in NS 0.9% 100 ML* 100 ML IVPB SCH ×3 (02:46→18:27)
[2018-11-30] MEDS: Vancomycin(*) 750 MG in NS 0.9% 250 ML* 250 ML IVPB SCH ×4 (05:25→22:31)
[2018-11-30 06:29] LABS: Hematocrit 35 % (35-47); Hemoglobin 11.9 g/dl (12.0-16.0); Mean Corpuscular HGB Conc 34 g/dl (31-36); Mean Corpuscular Hemoglobin 36 pg (27-31); Mean Corpuscular Volume 108 fL (80-97); Mean Platelet Volume 9.4 fL (7.4-10.4); Platelet Count 138 10^3/ul (150-450); Red Blood Count 3.28 10^6/ul (4.00-5.40); Red Cell Distribution Width 15 % (10.5-15); White Blood Count 9.4 10^3/ul (3.5-10.8)
[2018-11-30 06:45] LABS: Calcium 7.8 mg/dL (8.6-10.3); Magnesium 1.9 mg/dL (1.9-2.7)
[2018-11-30 06:51] LABS: BUN/Creatinine Ratio 13.6 (8-20); EGFR Non-African American 147.9 (>60); Phosphorus 2.4 mg/dL (2.5-5.0)
[2018-11-30 07:30] LABS: Potassium 4.2 mmol/L (3.5-5.0)
[2018-11-30] MEDS ORDERED: Calcium Gluconate INJ* 1 GM in NS 0.9% 50 ML* 50 ML IVPB ONE (09:50)
[2018-11-30] MEDS ORDERED: Sodium Phosphate INJ* 30 MMOLE in NS 0.9% 250 ML* 250 ML IVPB ONE (09:51)
--- NOTE | 2018-11-30 09:52 | PN ---
Date of Service: 11/30/18 - HD 4 Critical Care Services: 58 yo F with PMH including Downs syndrome, L occipital CVA, right peroneal neuropathy was brought to [facility] on 11/27 from the [facility] with cough and congestion x several weeks, now progressing. On exam she was hemodynamically stable, nonlabored breathing, scattered rhonci on auscultation, otherwise at baseline. WBC elevated at 18.6. Latic acid 1.2. Influenza screen negative. She was admitted to the medical service for further care and started on Zosyn for possible aspiration pneumonia/pneumonitis. Pancultured. 11/28: Requiring frequent suctioning for copious secretions. Vancomycin added. Repeat sputum cultures send. 11/29: Developed increased work of breathing and stridorous upper airway noise. Given racemic epi x 2 with minimal improvement. Started on IV steriods for possible laryngeal/tracheal edema secondary to suctioning. Receiving scheduled nebs. Transferred to ICU for Vapotherm and further care. 11/30: Stridor resolved. Weaning vapotherm Vital Signs: Temp Pulse Resp BP SpO2 FiO2 99.2 F 74 15 105/69 100 100 11/30/18 07:44 11/30/18 08:00 11/30/18 08:00 11/30/18 07:00 11/30/18 08:00 11/30 04:01 Physical Exam: Gen: much more alert today. appears comfortable HEENT: Highflow/vapotherm cannula in place Lungs: coarse upper airway noise bilaterally. moving air better today Cardiac: RRR Abdomen: soft, NTND Extremities: warm, dry, no edema Neuro:looking around room, intermittently mumbling Fluid Balance (Past 24 Hours): I= O= Net Intake & Output 11/28/18 11/29/18 11/30/18 12/01/18 06:59 06:59 06:59 06:59 Intake Total 414 495 5764.6 Balance 882 319 0730.6 Weight 90 lb 92 lb 2.452 oz Intake: IV Fluids 1508.6 ABX - VANCOMYCIN 250 NS (0.9%) 1258.6 IVPB 100 360 885 ABX - VANCOMYCIN 250 596 ABX - ZOSYN 100 110 289 Oral 0 540 0 Other: Estimated Void Large Large Small # Bowel Movements 0 0 Estimated Stool Amount Small # Voids 2 1 1 ADLs: Meal Record Start: 11/27/18 17: 35 Freq: DAILY@0900,1400,1800 Status: Complete Protocol: Created 11/27/18 17:35 System (Rec: 11/27/18 17:35 System MED-C09) Document 11/28/18 09:00 [id number] (Rec: 11/28/18 12:05 [id number] MED-C09) Document 11/28/18 14:00 [id number] (Rec: 11/28/18 18:42 [id number] MED-C09) Document 11/28/18 18:00 [id number] (Rec: 11/28/18 21:03 [id number] MED-C09) ADLs: Meal Record Start: 11/29/18 10: 56 Freq: 09,13,18 Status: Active Protocol: Created 11/29/18 10:56 [id number] (Rec: 11/29/18 10:56 [id number] ICU-C07) Document 11/29/18 13:00 [id number] (Rec: 11/29/18 16:17 [id number] ICU-C07) Document 11/29/18 18:00 [id number] (Rec: 11/29/18 18:25 [id number] ICU-C07) Intake and Output Start: 11/27/18 13: 03 Freq: Status: Active Protocol: Created 11/27/18 13:03 System (Rec: 11/27/18 13:03 System ED-C24) Intake and Output Start: 11/27/18 17: 35 Freq: DAILY@0600,1400,2200 Status: Active Protocol: Created 11/27/18 17:35 System (Rec: 11/27/18 17:35 System MED-C09) Document 11/27/18 22:00 [id number] (Rec: 11/27/18 22:19 [id number] MED-C09) Document 11/28/18 05:13 [id number] (Rec: 11/28/18 05:14 [id number] MED-C11) Document 11/28/18 14:00 [id number] (Rec: 11/28/18 18:42 [id number] MED-C09) Document 11/28/18 22:00 [id number] (Rec: 11/29/18 01:43 [id number] MED-C09) Document 11/29/18 04:04 [id number] (Rec: 11/29/18 04:05 [id number] MED-C09) Document 11/30/18 06:00 [id number] (Rec: 11/30/18 06:37 [id number] ICU-C07) Intake and Output Start: 11/29/18 10: 56 Freq: Q1HR Status: Complete Protocol: Created 11/29/18 10:56 [id number] (Rec: 11/29/18 10:56 [id number] ICU-C07) Document 11/29/18 11:00 [id number] (Rec: 11/29/18 11:19 [id number] ICU-C07) Document 11/29/18 12:00 [id number] (Rec: 11/29/18 16:12 [id number] ICU-C07) Document 11/29/18 18:00 [id number] (Rec: 11/29/18 18:25 [id number] ICU-C07) Document 11/29/18 21:00 [id number] (Rec: 11/29/18 21:43 [id number] ICU-C07) Labs: Laboratory Results - last 24 hr 11/29/18 11/30/18 11/30/18 14:42 06:00 06:00 WBC 9.4 RBC 3.28 L Hgb 11.9 L Hct 35 MCV 108 H MCH 36 H MCHC 34 RDW 15 Plt Count 138 L MPV 9.4 Sodium 144 Potassium 4.2 Chloride 111 Carbon Dioxide 28 Anion Gap 5 BUN 6 Creatinine 0.44 L Est GFR ( Amer) 179.0 Est GFR (Non-Af Amer) 147.9 BUN/Creatinine Ratio 13.6 Glucose 140 H Calcium 7.8 L Phosphorus 2.4 L Magnesium 1.9 Vancomycin Trough < 2.0 Studies: CXR 11/27 - grossly clear lungs bilaterally CXR 11/29 - lungs underinflated. mild prominence of interstitial markings. bilateral infiltrates. New as compared to prior study Nutrition: NPO until respiratory status improved Impression: 58 yo F with Down's syndrome, nonverbal state and prior stroke was admitted on with several week history of cough and congestion. She developed worsened symptoms 11/28 requiring frequent suctioning. On 11/29 she had sudden onset stridor and increased work of breathing. She was transferred to ICU for Vapotherm and further care. Now with improving respiratory status; weaning vapotherm Plan: Cardiovascular: (1) Sinus tachycardia secondary to sepsis; (2) Hypotension secondary to sepsis; (3) HLD -- HR 68-106, <92 since midnight -- SBP 77-155 -- Telemetry -- ASA, held secondary to airway issues Home meds: ASA Pulmonary: (1) Acute hypoxic respiratory failure; (2) Stridor, resolving; (3) Bilateral pneumonia -- RR 5-29 -- sats 89-100 on Vapotherm -- wean vapotherm as able -- CXR: bilateral interstitial infiltrates -- Scheduled Duonebs -- Robitussin as needed -- SoluMedrol for stridor -- PRN Morphine for work of breathing Home meds: Robitussin, Mometasone Gastrointestinal: None -- diet: NPO until mental status improved -- bowel regimen: None -- ulcer prophylaxis: Protonix Home meds: Miralax Endocrine: (1) Chronic hypothyroidism -- monitor BGs -- synthroid -- Solumedrol for stridor Home meds: Synthroid Renal: (1) Hypocalcemia, chronic; (2) Hypophosphatemia; (3) Chronic osteoporosis -- UOP: voiding -- Cr 0.44 from 0.52 -- Lytes Na 144 from 142 K 4.2 Ca 7.8, replace Mag 1.9 Phos 2.4, replace -- IVF: NS @ 75 ml/hr Home meds: calcium carbonate Infectious disease: (1) Sepsis; (2) Bilateral pneumonia -- Tmax 99.2 -- WBC 9.4 from 12.5 -- Micro 1/6 sputum normal ankita, colonized yeast 1/5 MRSA screen negative blood no growth to date Flu screen negative -- ABX Vancomycin Zosyn Home meds: None Neurologic: (1) Lethargy; (2) Down's syndrome; (3) hx of left occipital stroke ; (4) hx of right peroneal neuropathy; (6) Chronic OCD; (7) Chronic nonverbal state -- PRN Valium as needed for agitation -- Gabapentin nightly -- PRN Morphine for work of breathing, discomfort Home meds: valium, oxycodone, gabapentin Hematological: No acute issues -- Hgb 11.9 from 13.0, dilutional, follow trend -- Plt 138 from 161 -- DVT prophylaxis: SQ Lovenox -- ASA, held secondary to airway issues Home meds: ASA Metabolic: No acute issues Home meds: None Other: (1) Chronic osteoporosis -- Raloxifene, discontinue until airway issues improved Home medS: Vitamin D3, Raloxifene Deep vein thrombosis prophylaxis: SQ Lovenox Dietary: Protonix Condition: critical Prognosis: guarded Code status: DNR/DNI Disposition: continue ICU Care Patient's parents and [facility] nurse updated at bedside regarding clinical progress and plan of care Cumulative time spent in the care of this patient (excluding any procedure time) : at least 40 minutes. Patient care included clinical interview (with patient and/or family), bedside exam of the patient, review of labs, x-rays, and other ancillary data, coordination of (respiratory, nursing care, review of patient's records, discussion regarding patients management with involved consultants, primary physician, pharmacists, and other healthcare personnel (dietary, case management , physical/occupational therapy etc.) Critical Care Time: 40 min Critical Care Time:
[2018-11-30] MEDS: Calamine LOTION* 120 ML SCH ×2 (11:00→20:10)
[2018-11-30] MEDS: Clindamycin 1% TOPICAL(NF) TOPICAL SCH ×2 (11:00→20:10)
[2018-11-30] MEDS: Levothyroxine TAB* 50 MCG TAB PO SCH (15:21)
[2018-11-30] MEDS: Enoxaparin(*) 30 MG/0.3 ML SYR SUBCUT SCH (15:46)
[2018-11-30] MEDS: Pantoprazole IV* 40 MG IV SCH (15:48)
[2018-11-30] MEDS: Gabapentin CAP(*) 100 MG PO SCH (20:10)
[2018-12-01] MEDS: Morphine VIAL* 4 MG/ML VIAL (1 ml vial) IV PRN (01:09)
[2018-12-01] MEDS: methylPREDNISolone 125 MG* 2 ML VIAL IV SCH ×3 (02:02→18:09)
[2018-12-01] MEDS: Piperacillin/Tazobac ADVAN(*) 3.375 GM in NS 0.9% 100 ML* 100 ML IVPB SCH ×3 (02:02→18:11)
[2018-12-01] MEDS: Vancomycin(*) 750 MG in NS 0.9% 250 ML* 250 ML IVPB SCH ×2 (04:32→22:17)
[2018-12-01] MEDS: Levothyroxine TAB* 50 MCG TAB PO SCH (05:54)
[2018-12-01 07:25] LABS: Hematocrit 38 % (35-47); Hemoglobin 12.3 g/dl (12.0-16.0); Mean Corpuscular HGB Conc 33 g/dl (31-36); Mean Corpuscular Hemoglobin 35 pg (27-31); Mean Corpuscular Volume 108 fL (80-97); Mean Platelet Volume 9.2 fL (7.4-10.4); Platelet Count 186 10^3/ul (150-450); Red Blood Count 3.51 10^6/ul (4.00-5.40); Red Cell Distribution Width 15 % (10.5-15); White Blood Count 16.7 10^3/ul (3.5-10.8)
[2018-12-01 07:38] LABS: BUN/Creatinine Ratio 13.2 (8-20); EGFR Non-African American 119.3 (>60); Magnesium 1.9 mg/dL (1.9-2.7); Phosphorus 2.6 mg/dL (2.5-5.0); Potassium 3.5 mmol/L (3.5-5.0)
[2018-12-01] MEDS: NS 0.9% 1000 ML* 1,000 ML IV SCH ×2 (09:02→22:17)
[2018-12-01] MEDS: Calamine LOTION* 120 ML SCH ×2 (09:06→21:56)
[2018-12-01] MEDS: Clindamycin 1% TOPICAL(NF) TOPICAL SCH ×2 (09:06→21:57)
[2018-12-01] MEDS ORDERED: Vancomycin Trough Check NOTE FOLLOW UP ONE (10:00)
--- NOTE | 2018-12-01 13:36 | PN ---
Date of Service: 12/01/18 - HD 5 Critical Care Services: 58 yo F with PMH including Downs syndrome, L occipital CVA, right peroneal neuropathy was brought to [facility] on 11/27 from the [facility] with cough and congestion x several weeks, now progressing. On exam she was hemodynamically stable, nonlabored breathing, scattered rhonci on auscultation, otherwise at baseline. WBC elevated at 18.6. Latic acid 1.2. Influenza screen negative. She was admitted to the medical service for further care and started on Zosyn for possible aspiration pneumonia/pneumonitis. Pancultured. 11/28: Requiring frequent suctioning for copious secretions. Vancomycin added. Repeat sputum cultures send. 11/29: Developed increased work of breathing and stridorous upper airway noise. Given racemic epi x 2 with minimal improvement. Started on IV steriods for possible laryngeal/tracheal edema secondary to suctioning. Receiving scheduled nebs. Transferred to ICU for Vapotherm and further care. 11/30: Stridor resolved. Weaning vapotherm. Mental status improving 12/01: More somnolent today. Sleep apnea requiring placement of nasal trumpet Vital Signs: Temp Pulse Resp BP SpO2 FiO2 98.4 F 72 25 115/73 97 100 12/01/18 12:00 12/01/18 12:01 12/01/18 12:01 12/01/18 12:00 12/01/18 12:01 12/01 07:52 Physical Exam: Gen: sleeping deeply. Lethargic HEENT: nasal trumpet and vapotherm cannula in place Lungs: coarse bilaterally Cardiac: RRR Abdomen: soft NTND Extremities: Warm dry Neuro:lethargic Fluid Balance (Past 24 Hours): I= O= Net Intake & Output 11/29/18 11/30/18 12/01/18 12/02/18 06:59 06:59 06:59 06:59 Intake Total 900 2393.6 2343 Balance 900 2393.6 2343 Weight 92 lb 2.452 oz 94 lb 3.328 oz Intake: IV Fluids 1508.6 1101 ABX - VANCOMYCIN 250 NS (0.9%) 1258.6 1101 IVPB 625 604 6555 ABX - VANCOMYCIN 250 596 787 ABX - ZOSYN 110 289 195 NaPh 240 Oral 540 0 20 Other: Estimated Void Large Small Large Large Date of Last Bowel 11/30/18 12/01/18 Movement # Bowel Movements 0 1 1 Estimated Stool Amount Small Large Small # Voids 1 1 1 1 ADLs: Meal Record Start: 11/27/18 17: 35 Freq: DAILY@0900,1400,1800 Status: Complete Protocol: Created 11/27/18 17:35 System (Rec: 11/27/18 17:35 System MED-C09) Document 11/28/18 09:00 [id number] (Rec: 11/28/18 12:05 [id number] MED-C09) Document 11/28/18 14:00 [id number] (Rec: 11/28/18 18:42 [id number] MED-C09) Document 11/28/18 18:00 [id number] (Rec: 11/28/18 21:03 [id number] MED-C09) ADLs: Meal Record Start: 11/29/18 10: 56 Freq: 09,13,18 Status: Active Protocol: Created 11/29/18 10:56 [id number] (Rec: 11/29/18 10:56 [id number] ICU-C07) Document 11/29/18 13:00 [id number] (Rec: 11/29/18 16:17 [id number] ICU-C07) Document 11/29/18 18:00 [id number] (Rec: 11/29/18 18:25 [id number] ICU-C07) Document 11/30/18 18:50 [id number] (Rec: 11/30/18 18:54 [id number] ICU-C06) Document 12/01/18 09:00 [id number] (Rec: 12/01/18 09:32 [id number] ICU-M22) Intake and Output Start: 11/27/18 13: 03 Freq: Status: Active Protocol: Created 11/27/18 13:03 System (Rec: 11/27/18 13:03 System ED-C24) Intake and Output Start: 11/27/18 17: 35 Freq: DAILY@0600,1400,2200 Status: Active Protocol: Created 11/27/18 17:35 System (Rec: 11/27/18 17:35 System MED-C09) Document 11/27/18 22:00 [id number] (Rec: 11/27/18 22:19 [id number] MED-C09) Document 11/28/18 05:13 [id number] (Rec: 11/28/18 05:14 [id number] MED-C11) Document 11/28/18 14:00 [id number] (Rec: 11/28/18 18:42 [id number] MED-C09) Document 11/28/18 22:00 [id number] (Rec: 11/29/18 01:43 [id number] MED-C09) Document 11/29/18 04:04 [id number] (Rec: 11/29/18 04:05 [id number] MED-C09) Document 11/30/18 06:00 [id number] (Rec: 11/30/18 06:37 [id number] ICU-C07) Document 11/30/18 16:57 [id number] (Rec: 11/30/18 16:57 [id number] ICU-C06) Document 11/30/18 21:00 [id number] (Rec: 12/01/18 05:24 [id number] ICU-C07) Document 12/01/18 07:30 [id number] (Rec: 12/01/18 07:31 [id number] ICU-C06) Intake and Output Start: 11/29/18 10: 56 Freq: Q1HR Status: Complete Protocol: Created 11/29/18 10:56 [id number] (Rec: 11/29/18 10:56 [id number] ICU-C07) Document 11/29/18 11:00 [id number] (Rec: 11/29/18 11:19 [id number] ICU-C07) Document 11/29/18 12:00 [id number] (Rec: 11/29/18 16:12 [id number] ICU-C07) Document 11/29/18 18:00 [id number] (Rec: 11/29/18 18:25 [id number] ICU-C07) Document 11/29/18 21:00 [id number] (Rec: 11/29/18 21:43 [id number] ICU-C07) Labs: Laboratory Results - last 24 hr 12/01/18 12/01/18 12/01/18 06:37 06:37 12:25 WBC 16.7 H RBC 3.51 L Hgb 12.3 Hct 38 MCV 108 H MCH 35 H MCHC 33 RDW 15 Plt Count 186 MPV 9.2 Sodium 146 H Potassium 3.5 Chloride 111 Carbon Dioxide 31 Anion Gap 4 BUN 7 Creatinine 0.53 Est GFR ( Amer) 144.4 Est GFR (Non-Af Amer) 119.3 BUN/Creatinine Ratio 13.2 Glucose 148 H Calcium 8.0 L Phosphorus 2.6 Magnesium 1.9 Vancomycin Trough 37.5 H* Studies: CXR 12/01 - ordered CXR 11/29 - lungs underinflated. mild prominence of interstitial markings. bilateral infiltrates. New as compared to prior study CXR 11/27 - grossly clear lungs bilaterally Nutrition: NPO until respiratory status improved Impression: 58 yo F with Down's syndrome, nonverbal state and prior stroke was admitted on with several week history of cough and congestion. She developed worsened symptoms 11/28 requiring frequent suctioning. On 11/29 she had sudden onset stridor and increased work of breathing. She was transferred to ICU for Vapotherm and further care. Now with improving respiratory status; weaning vapotherm Plan: Cardiovascular: (1) Sinus tachycardia secondary to sepsis, resolving; (2) Hypotension secondary to sepsis, resolving; (3) HLD -- HR 61-93 -- SBP 82-115 -- Telemetry -- ASA, held secondary to airway issues Home meds: ASA Pulmonary: (1) Acute hypoxic respiratory failure; (2) Stridor, resolving; (3) Bilateral pneumonia; (4) Likely LOUIE -- RR 11-27 -- sats 89-100 on Vapotherm -- wean vapotherm as able -- CXR: pending -- ABG pending -- Scheduled Duonebs -- SoluMedrol for stridor -- PRN Morphine for work of breathing Home meds: Robitussin, Mometasone Gastrointestinal: None -- diet: NPO until mental status improved -- bowel regimen: None -- ulcer prophylaxis: Protonix Home meds: Miralax Endocrine: (1) Chronic hypothyroidism -- monitor BGs -- synthroid -- Solumedrol for stridor Home meds: Synthroid Renal: (1) Hypocalcemia, chronic; (2) Hypophosphatemia; (3) Chronic osteoporosis -- UOP: voiding -- Cr 0.44 from 0.52 -- Lytes Na 146 from 144 K 3.5 Ca 8.0, replace Mag 1.9 Phos 2.6 -- IVF: NS @ 75 ml/hr Home meds: calcium carbonate Infectious disease: (1) Sepsis; (2) Bilateral pneumonia -- Tmax 99.1 -- WBC 16.7 from 9.4 from 12.5 -- Procalitonin in progress -- Micro /6 sputum normal ankita, colonized yeast / MRSA screen negative blood no growth to date Flu screen negative -- ABX Vancomycin - discontinued as MRSA screen negative Zosyn add diflucan given rise in WBC, yeast on sputum and decreased mental status Home meds: None Neurologic: (1) Lethargy; (2) Down's syndrome; (3) hx of left occipital stroke ; (4) hx of right peroneal neuropathy; (6) Chronic OCD; (7) Chronic nonverbal state -- PRN Valium as needed for agitation -- Gabapentin nightly -- PRN Morphine for work of breathing, discomfort Home meds: valium, oxycodone, gabapentin Hematological: No acute issues -- Hgb 12.3 from 11.9 -- Plt 186 from 138 -- DVT prophylaxis: SQ Lovenox -- ASA, held secondary to airway issues Home meds: ASA Metabolic: No acute issues Home meds: None Other: (1) Chronic osteoporosis -- Raloxifene, discontinue until airway issues improved Home medS: Vitamin D3, Raloxifene Deep vein thrombosis prophylaxis: SQ Lovenox Dietary: Protonix Condition: critical Prognosis: guarded Code status: DNR/DNI Disposition: continue ICU Care Patient's Racker nurse updated at bedside regarding clinical progress and plan of care Cumulative time spent in the care of this patient (excluding any procedure time) : at least 40 minutes. Patient care included clinical interview (with patient and/or family), bedside exam of the patient, review of labs, x-rays, and other ancillary data, coordination of (respiratory, nursing care, review of patient's records, discussion regarding patients management with involved consultants, primary physician, pharmacists, and other healthcare personnel (dietary, case management , physical/occupational therapy etc.) Critical Care Time: 40 min Critical Care Time:
[2018-12-01] MEDS ORDERED: Calcium Gluconate INJ* 1 GM in NS 0.9% 50 ML* 50 ML IVPB ONE (14:30)
[2018-12-01] MEDS: Pantoprazole IV* 40 MG IV SCH (16:09)
[2018-12-01] MEDS: Enoxaparin(*) 30 MG/0.3 ML SYR SUBCUT SCH (16:12)
[2018-12-01] MEDS: Fluconazole 100 MG IVPREMIX(*) 100 MG/50 ML BAG IVPB SCH (16:15)
[2018-12-01] MEDS: Albuterol/Ipratropium NEB.SOL* Albuterol 2.5 MG/Ipratropium 0.5 MG 3 ML INH PRN (18:12)
[2018-12-01] MEDS: Gabapentin CAP(*) 100 MG PO SCH (22:15)
[2018-12-02] MEDS: Albuterol/Ipratropium NEB.SOL* Albuterol 2.5 MG/Ipratropium 0.5 MG 3 ML INH PRN (00:38)
[2018-12-02] MEDS: methylPREDNISolone 125 MG* 2 ML VIAL IV SCH (02:19)
[2018-12-02] MEDS: Piperacillin/Tazobac ADVAN(*) 3.375 GM in NS 0.9% 100 ML* 100 ML IVPB SCH ×4 (02:26→18:05)
[2018-12-02] MEDS: Levothyroxine TAB* 50 MCG TAB PO SCH (05:23)
[2018-12-02] MEDS: NS 0.9% 1000 ML* 1,000 ML IV SCH ×2 (05:50→21:08)
[2018-12-02] MEDS ORDERED: Furosemide IV* 10 MG/ML VIAL (40 MG) IV ONE (07:16)
--- NOTE | 2018-12-02 07:16 | PN ---
Date of Service: 12/02/18 - HD 6 Critical Care Services: 58 yo F with PMH including Downs syndrome, L occipital CVA, right peroneal neuropathy was brought to [facility] on 11/27 from the [facility] with cough and congestion x several weeks, now progressing. On exam she was hemodynamically stable, nonlabored breathing, scattered rhonci on auscultation, otherwise at baseline. WBC elevated at 18.6. Latic acid 1.2. Influenza screen negative. She was admitted to the medical service for further care and started on Zosyn for possible aspiration pneumonia/pneumonitis. Pancultured. 11/28: Requiring frequent suctioning for copious secretions. Vancomycin added. Repeat sputum cultures send. 11/29: Developed increased work of breathing and stridorous upper airway noise. Given racemic epi x 2 with minimal improvement. Started on IV steriods for possible laryngeal/tracheal edema secondary to suctioning. Receiving scheduled nebs. Transferred to ICU for Vapotherm and further care. 11/30: Stridor resolved. Weaning vapotherm. Mental status improving 12/01: More somnolent today. Sleep apnea requiring placement of nasal trumpet 12/02: No overnight events Vital Signs: Temp Pulse Resp BP SpO2 FiO2 99.6 F 74 22 116/75 94 80 12/02/18 06:41 12/02/18 06:01 12/02/18 06:01 12/02/18 06:00 12/02/18 06:01 12/02 04:44 Physical Exam: Gen: resting comfortably. HEENT: Vapotherm cannula in place Lungs: Coarse bilaterally Cardiac: RRR Abdomen: Soft, NTND Extremities: warm, dry, no edema Neuro: Not responding to verbal stimuli or light touch Fluid Balance (Past 24 Hours): I= O= Net Intake & Output 11/30/18 12/01/18 12/02/18 12/03/18 06:59 06:59 06:59 06:59 Intake Total 2393.6 2343 1694 Balance 2393.6 2343 1694 Weight 92 lb 2.452 oz 94 lb 3.328 oz 97 lb 0.054 oz Intake: IV Fluids 1508.6 1101 1196 ABX - VANCOMYCIN 250 26 ABX - ZOSYN 280 NS (0.9%) 1258.6 1101 890 IVPB 885 1222 498 ABX - VANCOMYCIN 596 787 43 ABX - ZOSYN 289 195 400 Calcium Gluconate 55 NaPh 240 Oral 0 20 Other: Estimated Void Small Large Large Date of Last Bowel 11/30/18 12/02/2018 Movement # Bowel Movements 1 1 Estimated Stool Amount Large Small # Voids 1 1 1 ADLs: Meal Record Start: 11/27/18 17: 35 Freq: DAILY@0900,1400,1800 Status: Complete Protocol: Created 11/27/18 17:35 System (Rec: 11/27/18 17:35 System MED-C09) Document 11/28/18 09:00 [id number] (Rec: 11/28/18 12:05 [id number] MED-C09) Document 11/28/18 14:00 [id number] (Rec: 11/28/18 18:42 [id number] MED-C09) Document 11/28/18 18:00 [id number] (Rec: 11/28/18 21:03 [id number] MED-C09) ADLs: Meal Record Start: 11/29/18 10: 56 Freq: 09,13,18 Status: Active Protocol: Created 11/29/18 10:56 [id number] (Rec: 11/29/18 10:56 [id number] ICU-C07) Document 11/29/18 13:00 [id number] (Rec: 11/29/18 16:17 [id number] ICU-C07) Document 11/29/18 18:00 [id number] (Rec: 11/29/18 18:25 [id number] ICU-C07) Document 11/30/18 18:50 [id number] (Rec: 11/30/18 18:54 [id number] ICU-C06) Document 12/01/18 09:00 [id number] (Rec: 12/01/18 09:32 [id number] ICU-M22) Document 12/01/18 13:00 [id number] (Rec: 12/01/18 16:05 [id number] ICU-C07) Document 12/01/18 19:00 [id number] (Rec: 12/01/18 23:19 [id number] ICU-C07) Intake and Output Start: 11/27/18 13: 03 Freq: Status: Active Protocol: Created 11/27/18 13:03 System (Rec: 11/27/18 13:03 System ED-C24) Intake and Output Start: 11/27/18 17: 35 Freq: DAILY@0600,1400,2200 Status: Active Protocol: Created 11/27/18 17:35 System (Rec: 11/27/18 17:35 System MED-C09) Document 11/27/18 22:00 [id number] (Rec: 11/27/18 22:19 [id number] MED-C09) Document 11/28/18 05:13 [id number] (Rec: 11/28/18 05:14 [id number] MED-C11) Document 11/28/18 14:00 [id number] (Rec: 11/28/18 18:42 [id number] MED-C09) Document 11/28/18 22:00 [id number] (Rec: 11/29/18 01:43 [id number] MED-C09) Document 11/29/18 04:04 [id number] (Rec: 11/29/18 04:05 [id number] MED-C09) Document 11/30/18 06:00 [id number] (Rec: 11/30/18 06:37 [id number] ICU-C07) Document 11/30/18 16:57 [id number] (Rec: 11/30/18 16:57 [id number] ICU-C06) Document 11/30/18 21:00 [id number] (Rec: 12/01/18 05:24 [id number] ICU-C07) Document 12/01/18 07:30 [id number] (Rec: 12/01/18 07:31 [id number] ICU-C06) Document 12/01/18 14:00 [id number] (Rec: 12/01/18 16:06 [id number] ICU-C07) Document 12/01/18 17:31 [id number] (Rec: 12/01/18 17:31 [id number] ICU-M22) Document 12/01/18 22:00 [id number] (Rec: 12/01/18 23:38 [id number] ICU-C14) Document 12/02/18 01:57 [id number] (Rec: 12/02/18 01:57 [id number] ICU-C06) Document 12/02/18 05:14 [id number] (Rec: 12/02/18 05:14 [id number] ICU-C14) Intake and Output Start: 11/29/18 10: 56 Freq: Q1HR Status: Complete Protocol: Created 11/29/18 10:56 [id number] (Rec: 11/29/18 10:56 [id number] ICU-C07) Document 11/29/18 11:00 [id number] (Rec: 11/29/18 11:19 [id number] ICU-C07) Document 11/29/18 12:00 [id number] (Rec: 11/29/18 16:12 [id number] ICU-C07) Document 11/29/18 18:00 [id number] (Rec: 11/29/18 18:25 [id number] ICU-C07) Document 11/29/18 21:00 [id number] (Rec: 11/29/18 21:43 [id number] ICU-C07) Labs: Laboratory Results - last 24 hr 11/29/18 12/01/18 12/01/18 14:42 06:37 06:37 WBC 16.7 H RBC 3.51 L Hgb 12.3 Hct 38 MCV 108 H MCH 35 H MCHC 33 RDW 15 Plt Count 186 MPV 9.2 Patient Temperature ABG pH ABG pH (Temp Correct) ABG pCO2 ABG pCO2 (Temp Corrct ABG pO2 ABG pO2 (Temp Correct ABG HCO3 ABG O2 Saturation ABG Base Excess Respiration Rate O2 Delivery Device Ventilator Type Vent Mode FiO2 Inspiratory Time PEEP Pressure Support Pressure Control EPAP IPAP BiPAP Sodium 146 H Potassium 3.5 Chloride 111 Carbon Dioxide 31 Anion Gap 4 BUN 7 Creatinine 0.53 Est GFR ( Amer) 144.4 Est GFR (Non-Af Amer) 119.3 BUN/Creatinine Ratio 13.2 Glucose 148 H Calcium 8.0 L Phosphorus 2.6 Magnesium 1.9 Vancomycin Trough 12.6 12/01/18 12/01/18 12:25 13:26 WBC RBC Hgb Hct MCV MCH MCHC RDW Plt Count MPV Patient Temperature Not Reportable ABG pH 7.41 ABG pH (Temp Correct) Not Reportable ABG pCO2 50 H ABG pCO2 (Temp Corrct Not Reportable ABG pO2 76 L ABG pO2 (Temp Correct Not Reportable ABG HCO3 29.4 ABG O2 Saturation 98.1 H ABG Base Excess 5.8 H Respiration Rate Not Reportable O2 Delivery Device Vapotherm 25l 100% Ventilator Type Not Reportable Vent Mode Not Reportable FiO2 100 Inspiratory Time Not Reportable PEEP Not Reportable Pressure Support Not Reportable Pressure Control Not Reportable EPAP Not Reportable IPAP Not Reportable BiPAP Not Reportable Sodium Potassium Chloride Carbon Dioxide Anion Gap BUN Creatinine Est GFR ( Amer) Est GFR (Non-Af Amer) BUN/Creatinine Ratio Glucose Calcium Phosphorus Magnesium Vancomycin Trough 37.5 H* Studies: CXR 12/02 - more apparent bilateral lower lobe intersititial opacification CXR 12/01 - increased bilateral alveolar opacification and probable increase in small plerual effusions. Differential includes alveolar and interstitial pulmonary edema as well as bronchopneumonia. CXR 11/29 - lungs underinflated. mild prominence of interstitial markings. bilateral infiltrates. New as compared to prior study CXR 11/27 - grossly clear lungs bilaterally Nutrition: NPO until respiratory status improved Impression: 58 yo F with Down's syndrome, nonverbal state and prior stroke was admitted on with several week history of cough and congestion. She developed worsened symptoms 11/28 requiring frequent suctioning. On 11/29 she had sudden onset stridor and increased work of breathing. She was transferred to ICU for Vapotherm and further care. CXR now demonstrating bilateral lower lobe interstitial infiltrates. Plan: Cardiovascular: (1) Sinus tachycardia secondary to sepsis, resolved; (2) Hypotension secondary to sepsis, resolving; (3) HLD -- HR 52-93 -- SBP 82-128 -- Telemetry -- ASA, held secondary to airway issues Home meds: ASA Pulmonary: (1) Acute hypoxic respiratory failure; (2) Stridor, resolved; (3) Bilateral pneumonia; (4) Likely LOUIE -- RR 11-27 -- sats 91-100 on Vapotherm -- wean vapotherm as able -- CXR: bilateral lower lobe infiltrates -- Scheduled Duonebs -- SoluMedrol for stridor, start taper -- PRN Morphine for work of breathing -- Lasix x 1 for increased pulmonary edema/effusions Home meds: Robitussin, Mometasone Gastrointestinal: None -- diet: NPO until mental status improved. NO TF per family -- bowel regimen: None -- ulcer prophylaxis: Protonix Home meds: Miralax Endocrine: (1) Chronic hypothyroidism; (2) Hyperglycemia, likely secondary to steriods -- monitor BGs, start SSI if > 180 -- synthroid -- Solumedrol for stridor, start taper Home meds: Synthroid Renal: (1) Hypocalcemia, chronic; (2) Hypophosphatemia; (3) Chronic osteoporosis -- UOP: voiding -- AM BMP in progress -- IVF: NS @ 75 ml/hr -- Lasix x 1 for increased pulmonary edema/effusions Home meds: calcium carbonate Infectious disease: (1) Sepsis; (2) Bilateral pneumonia -- Tmax 100.5 -- WBC 16.7 from 9.4 from 12.5 -- Procalitonin in progress -- Micro / sputum normal ankita, colonized yeast 11/27 MRSA screen negative blood no growth to date Flu screen negative -- ABX Vancomycin - discontinued as MRSA screen negative Zosyn Diflucan Home meds: None Neurologic: (1) Lethargy secondary to sepsis; (2) Down's syndrome; (3) hx of left occipital stroke; (4) hx of right peroneal neuropathy; (6) Chronic OCD; (7 ) Chronic nonverbal state -- PRN Valium as needed for agitation -- Gabapentin nightly -- PRN Morphine for work of breathing, discomfort Home meds: valium, oxycodone, gabapentin Hematological: No acute issues -- Hgb 11.6 from 12.3 -- Plt 166 from 186 -- DVT prophylaxis: SQ Lovenox -- ASA, held secondary to airway issues Home meds: ASA Metabolic: No acute issues Home meds: None Other: (1) Chronic osteoporosis -- Raloxifene, discontinue until airway issues improved Home medS: Vitamin D3, Raloxifene Deep vein thrombosis prophylaxis: SQ Lovenox Dietary: Protonix Condition: critical Prognosis: guarded Code status: DNR/DNI Disposition: continue ICU Care. Family requesting transition to comfort measures only now. Process through OPWDD initiated Patient's Racker nurse and family updated at bedside regarding clinical progress and plan of care Cumulative time spent in the care of this patient (excluding any procedure time) : at least 40 minutes. Patient care included clinical interview (with patient and/or family), bedside exam of the patient, review of labs, x-rays, and other ancillary data, coordination of (respiratory, nursing care, review of patient's records, discussion regarding patients management with involved consultants, primary physician, pharmacists, and other healthcare personnel (dietary, case management , physical/occupational therapy etc.) Critical Care Time: 40 min
[2018-12-02 07:17] LABS: Hematocrit 35 % (35-47); Hemoglobin 11.6 g/dl (12.0-16.0); Mean Corpuscular HGB Conc 33 g/dl (31-36); Mean Corpuscular Hemoglobin 35 pg (27-31); Mean Corpuscular Volume 107 fL (80-97); Mean Platelet Volume 9.2 fL (7.4-10.4); Platelet Count 166 10^3/ul (150-450); Red Cell Distribution Width 14 % (10.5-15); White Blood Count 13.3 10^3/ul (3.5-10.8)
[2018-12-02 07:27] LABS: BUN/Creatinine Ratio 18.5 (8-20); Calcium 8.4 mg/dL (8.6-10.3); EGFR Non-African American 116.8 (>60); Magnesium 1.9 mg/dL (1.9-2.7); Phosphorus 2.3 mg/dL (2.5-5.0); Potassium 3.4 mmol/L (3.5-5.0)
[2018-12-02] MEDS: Calamine LOTION* 120 ML SCH ×2 (11:06→19:18)
[2018-12-02] MEDS: Clindamycin 1% TOPICAL(NF) TOPICAL SCH ×2 (11:07→19:21)
--- NOTE | 2018-12-02 13:09 | PN ---
Progress Note - Progress Note Date of Service: 12/02/18 - Clarification of clinical status Note: To clarify clinical status for better decision-making regarding comfort care measures and goals of care: Keyla's clinical status has gradually worsened both during this hospitalization as well as, more rapidly, while in the unit. She has become unresponisve as part of the septic response to her pneumonia, and , likely, because she is becoming fatigued by fighting this illness. This morning she is not responding to voice or touch, and whereas she used to squeeze her mother's hand when she came in, she is no longer doing so. Her current sepsis and pneumonia has worsened since arriving on the unit. The chest XRays obtained show advancing bilateral lower lobe involvement, despite maximal medical therapy. Despite appropriate treatment with broadspectrum antibiotics and antifungal therapy, for enough days that we would expect to see improvement by now, her clinical status has worsened. She is continuing to require advanced respiratory support from the vapotherm and her mental status has declined as mentioned above. Additionally her heart rate is now becoming labile, a likely sign of cardiovascular stress, as it does not correlate with signs of pain or agitation. In order to attempt to further treat this pneumonia the patient would ideally require intubation (especially given decline in mental status and inability to protect airway), possible tracheostomy, continued IV antibiotics and possible vasopressors if she were to develop hypotension. Her parents have already considered her best interests and quality of life goals and been approved for a DNR and DNI status prior to this hospitalization. Thus, without intubating, we are forced to try to temporize her with the Vapotherm. While she is currently holding her sats on the vapotherm, her mental status is not sufficent to protect her airway, and she has already had one episode of aspiration while here in the unit which correlates to worsening findings on the chest xray. It is not clear that the current interventions will be enough to prevent her from passing from this disease process. This has been reviewed with the family and they feel that further subjecting Keyla to aggressive medical intervention is only prolonging her suffering. On discussing her general health status with her parents, her mom and dad tell me that they have noticed a general decline in her functioning over the past months, such that she is no longer engaging with the surrounding world like she used to. They feel that her quality of life had eroded significantly, prior to this current illness, such that even returning her to her pre-hospital state will not be able to provide an adequate quality of life, they feel. Given her critical state, failure to demonstrate improvement despite appropriate interventions and poor prognosis, her family wishes to purse comfort measures so as to limit her suffering and maximize any remaining quality of life for her. Of note - her admission CXR showed low lung volumes. Current CXR from today shows extensive bilateral lung infiltrate, and congestive heart failure. It is not clear at this time, but reasonable to assume, that given she is likely aspirating frequently (given witnessed episode on unit, as well as likely episode leading to transfer to unit, and also possible source of initial symptoms leading to admission) she may nor may not ever recover full lung function and lung scarring is a reasonable concern.
[2018-12-02] MEDS ORDERED: methylPREDNISolone 125 MG* 2 ML VIAL IV SCH (14:00)
[2018-12-02] MEDS: Fluconazole 100 MG IVPREMIX(*) 100 MG/50 ML BAG IVPB SCH ×2 (14:10→17:21)
[2018-12-02] MEDS: Enoxaparin(*) 30 MG/0.3 ML SYR SUBCUT SCH (15:42)
[2018-12-02] MEDS: Pantoprazole IV* 40 MG IV SCH (15:43)
[2018-12-03] MEDS: Piperacillin/Tazobac ADVAN(*) 3.375 GM in NS 0.9% 100 ML* 100 ML IVPB SCH ×2 (02:19→09:27)
[2018-12-03] MEDS: Calamine LOTION* 120 ML SCH (08:17)
[2018-12-03] MEDS: Clindamycin 1% TOPICAL(NF) TOPICAL SCH (08:19)
--- NOTE | 2018-12-03 08:32 | PN ---
Date of Service: 12/03/18 - Critical Care Services: 58 yo F with PMH including Downs syndrome, L occipital CVA, right peroneal neuropathy was brought to [facility] on 11/27 from the [facility] with cough and congestion x several weeks, now progressing. On exam she was hemodynamically stable, nonlabored breathing, scattered rhonci on auscultation, otherwise at baseline. WBC elevated at 18.6. Latic acid 1.2. Influenza screen negative. She was admitted to the medical service for further care and started on Zosyn for possible aspiration pneumonia/pneumonitis. Pancultured. 11/28: Requiring frequent suctioning for copious secretions. Vancomycin added. Repeat sputum cultures send. 11/29: Developed increased work of breathing and stridorous upper airway noise. Given racemic epi x 2 with minimal improvement. Started on IV steriods for possible laryngeal/tracheal edema secondary to suctioning. Receiving scheduled nebs. Transferred to ICU for Vapotherm and further care. 11/30: Stridor resolved. Weaning vapotherm. Mental status improving 12/01: More somnolent today. Sleep apnea requiring placement of nasal trumpet 12/02: No longer responding to voice or light touch. Not responding to mom anymore. Continues to have cough and labored breathing, on Vapotherm. Parents requesting comfort care status given decline and poor premorbid quality of life. Process via OPWDD initiated. 12/03: No overnight events. Mental status improved this morning, but still requiring Vapotherm. Vital Signs: Temp Pulse Resp BP SpO2 FiO2 99.4 F 48 15 104/63 93 70 12/03/18 08:00 12/03/18 06:01 12/03/18 06:01 12/03/18 06:00 12/03/18 06:01 12/03 05:36 Physical Exam: Gen: Awakens to light touch HEENT: Dry mucus membranes Lungs: Rhonci bilaterally Cardiac: RRR Abdomen: soft, NTND Extremities: warm, dry Neuro: more awake today. opening eyes to voice, tracking. not following commands Fluid Balance (Past 24 Hours): I= O= Net Intake & Output 12/01/18 12/02/18 12/03/18 12/04/18 06:59 06:59 06:59 06:59 Intake Total 2343 1694 1852 Balance 2343 1694 1852 Weight 94 lb 3.328 oz 97 lb 0.054 oz 89 lb 15.178 oz Intake: IV Fluids 1101 1196 1655 ABX - VANCOMYCIN 26 ABX - ZOSYN 280 NS (0.9%) 9894 772 8010 IVPB 1222 498 197 ABX - VANCOMYCIN 787 43 ABX - ZOSYN 195 400 197 Calcium Gluconate 55 NaPh 240 Oral 20 Other: Estimated Void Large Large Medium Date of Last Bowel 11/30/18 12/02/2018 Movement # Bowel Movements 1 1 1 Estimated Stool Amount Large Small Large # Voids 1 1 1 ADLs: Meal Record Start: 11/27/18 17: 35 Freq: DAILY@0900,1400,1800 Status: Complete Protocol: Created 11/27/18 17:35 System (Rec: 11/27/18 17:35 System MED-C09) Document 11/28/18 09:00 [id number] (Rec: 11/28/18 12:05 [id number] MED-C09) Document 11/28/18 14:00 [id number] (Rec: 11/28/18 18:42 [id number] MED-C09) Document 11/28/18 18:00 [id number] (Rec: 11/28/18 21:03 [id number] MED-C09) ADLs: Meal Record Start: 11/29/18 10: 56 Freq: 09,13,18 Status: Active Protocol: Created 11/29/18 10:56 [id number] (Rec: 11/29/18 10:56 [id number] ICU-C07) Document 11/29/18 13:00 [id number] (Rec: 11/29/18 16:17 [id number] ICU-C07) Document 11/29/18 18:00 [id number] (Rec: 11/29/18 18:25 [id number] ICU-C07) Document 11/30/18 18:50 [id number] (Rec: 11/30/18 18:54 [id number] ICU-C06) Document 12/01/18 09:00 [id number] (Rec: 12/01/18 09:32 [id number] ICU-M22) Document 12/01/18 13:00 [id number] (Rec: 12/01/18 16:05 PYQ4075 ICU-C07) Document 12/01/18 19:00 [id number] (Rec: 12/01/18 23:19 [id number] ICU-C07) Document 12/02/18 09:00 UQO7383 (Rec: 12/02/18 12:15 ECW9809 ICU-C07) Document 12/02/18 13:00 FZH1765 (Rec: 12/02/18 14:34 HNY5025 ICU-C07) Document 12/02/18 18:00 YDH0610 (Rec: 12/02/18 18:19 HGH6347 ICU-M24) Intake and Output Start: 11/27/18 13: 03 Freq: Status: Active Protocol: Created 11/27/18 13:03 System (Rec: 11/27/18 13:03 System ED-C24) Intake and Output Start: 11/27/18 17: 35 Freq: DAILY@0600,1400,2200 Status: Active Protocol: Created 11/27/18 17:35 System (Rec: 11/27/18 17:35 System MED-C09) Document 11/27/18 22:00 WOT7155 (Rec: 11/27/18 22:19 FYO4336 MED-C09) Document 11/28/18 05:13 [id number] (Rec: 11/28/18 05:14 WAJ5164 MED-C11) Document 11/28/18 14:00 FZR0481 (Rec: 11/28/18 18:42 YBO2723 MED-C09) Document 11/28/18 22:00 YCI7772 (Rec: 11/29/18 01:43 ZSO2269 MED-C09) Document 11/29/18 04:04 YFM6972 (Rec: 11/29/18 04:05 QYE9669 MED-C09) Document 11/30/18 06:00 BOC0993 (Rec: 11/30/18 06:37 WIA5406 ICU-C07) Document 11/30/18 16:57 RDY7089 (Rec: 11/30/18 16:57 WBB1996 ICU-C06) Document 11/30/18 21:00 UEG5558 (Rec: 12/01/18 05:24 IAU0875 ICU-C07) Document 12/01/18 07:30 LIA1648 (Rec: 12/01/18 07:31 ARI3606 ICU-C06) Document 12/01/18 14:00 NHA7165 (Rec: 12/01/18 16:06 [id number] ICU-C07) Document 12/01/18 17:31 NHO0102 (Rec: 12/01/18 17:31 WPT2309 ICU-M22) Document 12/01/18 22:00 RXL7186 (Rec: 12/01/18 23:38 DIF6623 ICU-C14) Document 12/02/18 01:57 HVB1622 (Rec: 12/02/18 01:57 INP7566 ICU-C06) Document 12/02/18 05:14 [id number] (Rec: 12/02/18 05:14 QHM9939 ICU-C14) Document 12/02/18 14:00 DGC2078 (Rec: 12/02/18 14:35 KVH3680 ICU-C07) Document 12/03/18 00:32 POV2101 (Rec: 12/03/18 00:32 UCR5415 ICU-C07) Document 12/03/18 05:50 [id number] (Rec: 12/03/18 05:50 IUU9816 ICU-C07) Intake and Output Start: 11/29/18 10: 56 Freq: Q1HR Status: Complete Protocol: Created 11/29/18 10:56 [id number] (Rec: 11/29/18 10:56 VVR1158 ICU-C07) Document 11/29/18 11:00 YCF6101 (Rec: 11/29/18 11:19 WOO2790 ICU-C07) Document 11/29/18 12:00 [id number] (Rec: 11/29/18 16:12 QFG2532 ICU-C07) Document 11/29/18 18:00 BWS1766 (Rec: 11/29/18 18:25 RYM0226 ICU-C07) Document 11/29/18 21:00 [id number] (Rec: 11/29/18 21:43 [id number] ICU-C07) Labs: Laboratory Results - last 24 hr 11/30/18 06:30 Procalcitonin 0.31 H Studies: CXR 12/02 - more apparent bilateral lower lobe intersititial opacification CXR 12/01 - increased bilateral alveolar opacification and probable increase in small plerual effusions. Differential includes alveolar and interstitial pulmonary edema as well as bronchopneumonia. CXR 11/29 - lungs underinflated. mild prominence of interstitial markings. bilateral infiltrates. New as compared to prior study CXR 11/27 - grossly clear lungs bilaterally Nutrition: NPO until respiratory status improved Impression: 58 yo F with Down's syndrome, nonverbal state and prior stroke was admitted on with several week history of cough and congestion. She developed worsened symptoms 11/28 requiring frequent suctioning. On 11/29 she had sudden onset stridor and increased work of breathing. She was transferred to ICU for Vapotherm and further care. CXR now demonstrating bilateral lower lobe interstitial infiltrates. Failing to improve on broad antibiotic coverage. Family requesting comfort measures given decline and poor premorbid quality of life. Process initiated through OPWDD. Plan: Cardiovascular: (1) Sinus tachycardia secondary to sepsis, resolved; (2) Hypotension secondary to sepsis, resolving; (3) HLD -- HR 42-63 -- SBP 101-130 -- Telemetry -- ASA, held secondary to airway issues Home meds: ASA Pulmonary: (1) Acute hypoxic respiratory failure; (2) Stridor, resolved; (3) Bilateral pneumonia; (4) Likely LOUIE -- RR 10-26 -- sats 91-100 on Vapotherm -- wean vapotherm as able -- CXR, 12/02: bilateral lower lobe infiltrates -- Scheduled Duonebs -- SoluMedrol weaned off -- PRN Morphine for work of breathing Home meds: Robitussin, Mometasone Gastrointestinal: None -- diet: NPO until mental status improved. NO TF per family (previously approved through OPWDD apparently, will need to confirm if comfort care measures not approved) -- bowel regimen: None -- ulcer prophylaxis: Protonix - mom/.HCP refusing and not considered "life sustaining" therapy Home meds: Miralax Endocrine: (1) Chronic hypothyroidism; (2) Hyperglycemia, likely secondary to steriods -- synthroid discontinued secondary to inability to protect airway -- Solumedrol weaned off Home meds: Synthroid Renal: (1) Hypocalcemia, chronic; (2) Hypophosphatemia; (3) Chronic osteoporosis -- UOP: voiding -- AM BMP held pending OPWDD decision -- IVF: NS @ 75 ml/hr. dextrose held secondary to hyperglycemia Home meds: calcium carbonate Infectious disease: (1) Sepsis; (2) Bilateral pneumonia -- Tmax 99.6 -- WBC 16.7 on 12/02. AM labs held pending OPWDD decision -- Procalitonin in progress -- Micro 11/28 sputum normal ankita, colonized yeast 11/27 MRSA screen negative blood no growth to date Flu screen negative -- ABX Vancomycin - discontinued as MRSA screen negative Zosyn Diflucan Home meds: None Neurologic: (1) Lethargic secondary to sepsis. Mental status fluctuating; (2) Down's syndrome; (3) hx of left occipital stroke; (4) hx of right peroneal neuropathy; (6) Chronic OCD; (7) Chronic nonverbal state -- PRN Valium as needed for agitation - discontinued as now obtunded -- Gabapentin discontinued as unable to protect airway and now obtunded -- PRN Morphine for work of breathing, discomfort -- Request for comfort measures (at direction of family/HCP) in process Home meds: valium, oxycodone, gabapentin Hematological: No acute issues -- Hgb 11.6 from 12.3 on 12/02. AM labs held pending OPWDD decision -- Plt 166 from 186 on 12/02. AM labs held pending OPWDD decision -- DVT prophylaxis: SQ Lovenox - mom/HCP refusing and not considered "life sustaining" therapy -- ASA, held secondary to airway issues Home meds: ASA Metabolic: No acute issues Home meds: None Other: (1) Chronic osteoporosis -- Raloxifene, discontinued until airway issues improved Home medS: Vitamin D3, Raloxifene Deep vein thrombosis prophylaxis: SQ Lovenox - mom refusing and not considered "life sustaining" therapy Dietary: Protonix - mom refusing and not considered "life sustaining" therapy Condition: critical Prognosis: poor Code status: DNR/DNI Disposition: continue ICU Care. Family requesting transition to comfort measures only now. Process through OPWDD initiated Cumulative time spent in the care of this patient (excluding any procedure time) : at least 40 minutes. Patient care included clinical interview (with patient and/or family), bedside exam of the patient, review of labs, x-rays, and other ancillary data, coordination of (respiratory, nursing care, review of patient's records, discussion regarding patients management with involved consultants, primary physician, pharmacists, and other healthcare personnel (dietary, case management , physical/occupational therapy etc.) Critical Care Time: 40 min
[2018-12-03] MEDS: NS 0.9% 1000 ML* 1,000 ML IV SCH (10:21)
[2018-12-03] MEDS ORDERED: Morphine PCA ADULT* 5 MG/ML 30 ML PCA SCH ×5 (11:00→20:38)
--- NOTE | 2018-12-03 12:28 | CONSULT ---
Palliative / Hospice Consult Ordering Provider: Makenna Falcon - PCP-Joselito - Subjective Code Status: DNR Advance Directives Location: In Chart MOLST Part A Completed: Yes - completed by Dr Falcon with parents MOLST Part E Completed:: Yes - completed by Dr. Falcon with parents - History or Present Illness History or Present Illness: 58yo female with down syndrome resident of [facility] presented to ER with cough and congestion. Pt is completely non verbal. Information was obtained from parents, [facility] nurse, ICU physician, ICU nursing staff and hospital records. She was admitted to the hospital with pneumonia. Her other medical problems include OCD, hypothyroid, hyperlipidemia, neuropathy, L occipital stroke 2 years ago, R peroneal neuropathy and osteoporosis. She is a non smoker, non drinker non drug user. Prior to her stroke she was involved with swimming program and much more active. Since the stroke she has had a decline. While in the hospital she has continued to do poorly despite optimal medications. Parents have decided to make her a comfort care only because she has been been declining and has a worse quality of life now. They will wean her from the vapor therm once State approval is received. Lab Values: Laboratory Last Values WBC 13.3 10^3/ul (3.5-10.8) H 12/02/18 06:55 RBC 3.30 10^6/ul (4.00-5.40) L 12/02/18 06:55 Hgb 11.6 g/dl (12.0-16.0) L 12/02/18 06:55 Hct 35 % (35-47) 12/02/18 06:55 MCV 107 fL (80-97) H 12/02/18 06:55 MCH 35 pg (27-31) H 12/02/18 06:55 MCHC 33 g/dl (31-36) 12/02/18 06:55 RDW 14 % (10.5-15) 12/02/18 06:55 Plt Count 166 10^3/ul (150-450) 12/02/18 06:55 MPV 9.2 fL (7.4-10.4) 12/02/18 06:55 Neut % (Auto) 77.5 % 11/29/18 07:01 Lymph % (Auto) 15.6 % 11/29/18 07:01 [place] % (Auto) 6.0 % 11/29/18 07:01 Eos % (Auto) 0.4 % 11/29/18 07:01 Baso % (Auto) 0.5 % 11/29/18 07:01 Absolute Neuts (auto) 9.7 10^3/ul (1.5-7.7) H 11/29/18 07:01 Absolute Lymphs (auto) 2.0 10^3/ul (1.0-4.8) 11/29/18 07:01 Absolute Monos (auto) 0.7 10^3/ul (0-0.8) 11/29/18 07:01 Absolute Eos (auto) 0 10^3/ul (0-0.6) 11/29/18 07:01 Absolute Basos (auto) 0.1 10^3/ul (0-0.2) 11/29/18 07:01 Absolute Nucleated RBC 0 10^3/ul 11/29/18 07:01 Nucleated RBC % 0 11/29/18 07:01 Patient Temperature Not Reportable 12/01/18 13:26 ABG pH 7.41 (7.35-7.45) 12/01/18 13:26 ABG pH (Temp Correct) Not Reportable 12/01/18 13:26 ABG pCO2 50 mmHg (35-45) H 12/01/18 13:26 ABG pCO2 (Temp Corrct Not Reportable 12/01/18 13:26 ABG pO2 76 mmHg (80-100) L 12/01/18 13:26 ABG pO2 (Temp Correct Not Reportable 12/01/18 13:26 ABG HCO3 29.4 mmol/L (19-31) 12/01/18 13:26 ABG O2 Saturation 98.1 % (94.0-98.0) H 12/01/18 13:26 ABG Base Excess 5.8 mmol/L (-2.0-2.0) H 12/01/18 13:26 Respiration Rate Not Reportable 12/01/18 13:26 O2 Delivery Device Vapotherm 25l 100% 12/01/18 13:26 Ventilator Type Not Reportable 12/01/18 13:26 Vent Mode Not Reportable 12/01/18 13:26 FiO2 100 12/01/18 13:26 Inspiratory Time Not Reportable 12/01/18 13:26 PEEP Not Reportable 12/01/18 13:26 Pressure Support Not Reportable 12/01/18 13:26 Pressure Control Not Reportable 12/01/18 13:26 EPAP Not Reportable 12/01/18 13:26 IPAP Not Reportable 12/01/18 13:26 BiPAP Not Reportable 12/01/18 13:26 Sodium 145 mmol/L (135-145) 12/02/18 06:55 Potassium 3.4 mmol/L (3.5-5.0) L 12/02/18 06:55 Chloride 109 mmol/L (101-111) 12/02/18 06:55 Carbon Dioxide 30 mmol/L (22-32) 12/02/18 06:55 Anion Gap 6 mmol/L (2-11) 12/02/18 06:55 BUN 10 mg/dL (6-24) 12/02/18 06:55 Creatinine 0.54 mg/dL (0.51-0.95) 12/02/18 06:55 Est GFR ( Amer) 141.3 (>60) 12/02/18 06:55 Est GFR (Non-Af Amer) 116.8 (>60) 12/02/18 06:55 BUN/Creatinine Ratio 18.5 (8-20) 12/02/18 06:55 Glucose 157 mg/dL (70-100) H 12/02/18 06:55 Lactic Acid 1.2 mmol/L (0.5-2.0) 11/27/18 14:00 Calcium 8.4 mg/dL (8.6-10.3) L 12/02/18 06:55 Phosphorus 2.3 mg/dL (2.5-5.0) L 12/02/18 06:55 Magnesium 1.9 mg/dL (1.9-2.7) 12/02/18 06:55 Total Bilirubin 0.30 mg/dL (0.2-1.0) 11/27/18 14:00 AST 63 U/L (13-39) H 11/27/18 14:00 ALT 79 U/L (7-52) H 11/27/18 14:00 Alkaline Phosphatase 73 U/L (34-104) 11/27/18 14:00 Troponin I 0.00 ng/mL (<0.04) 11/27/18 14:00 C-Reactive Protein 6.19 mg/L (<8.01) 11/27/18 14:00 B-Natriuretic Peptide 516 pg/mL (<=100) H 12/02/18 06:55 Total Protein 6.5 g/dL (6.4-8.9) 11/27/18 14:00 Albumin 3.5 g/dL (3.2-5.2) 11/27/18 14:00 Globulin 3.0 g/dL (2-4) 11/27/18 14:00 Albumin/Globulin Ratio 1.2 (1-3) 11/27/18 14:00 Procalcitonin 0.31 ng/mL (<=0.15) H 11/30/18 06:30 Urine Color Yellow 11/27/18 16:41 Urine Appearance Cloudy 11/27/18 16:41 Urine pH 7.0 (5-9) 11/27/18 16:41 Ur Specific [place] 1.016 (1.010-1.030) 11/27/18 16:41 Urine Protein Negative (Negative) 11/27/18 16:41 Urine Ketones Negative (Negative) 11/27/18 16:41 Urine Blood Negative (Negative) 11/27/18 16:41 Urine Nitrate Negative (Negative) 11/27/18 16:41 Urine Bilirubin Negative (Negative) 11/27/18 16:41 Urine Urobilinogen Negative (Negative) 11/27/18 16:41 Ur Leukocyte Esterase Negative (Negative) 11/27/18 16:41 Urine Glucose Negative (Negative) 11/27/18 16:41 Urine Ascorbic Acid * (Negative) A 11/27/18 16:41 Vancomycin Trough 37.5 mcg/mL H* 12/01/18 12:25 Influenza A (Rapid) Negative (Negative) 11/27/18 14:57 Influenza B (Rapid) Negative (Negative) 11/27/18 14:57 - Objective Active Medications: Albuterol/Ipratropium (Duoneb (Albuterol 2.5 Mg/Ipratropium 0.5 Mg)) 1 neb INH Q6H PRN PRN Reason: SOB/WHEEZING Last Admin: 12/02/18 00:38 Dose: 1 neb Bacitracin (Bacitracin Ointment Santiago*) 1 applic TOPICAL DAILY PRN PRN Reason: RASH Calamine (Calamine Lotion*) 1 applic .SEE ORDER BID [facility] Last Admin: 12/03/18 08:17 Dose: Not Given Clindamycin Phosphate (Cleocin-T 1% Topical(Nf)) 1 applic TOPICAL BID [facility] Last Admin: 12/03/18 08:19 Dose: Not Given Piperacillin Sod/Tazobactam (Sod 3.375 gm/ Sodium Chloride) 100 mls @ 25 mls/ hr IVPB Q8H [facility] Last Admin: 12/03/18 09:27 Dose: 25 mls/hr Sodium Chloride (Ns 0.9% 1000 Ml*) 1,000 mls @ 75 mls/hr IV .PERRATE [facility] Last Admin: 12/03/18 10:21 Dose: 75 mls/hr Fluconazole/Sodium Chloride (Diflucan 100 Mg Ivpremix(*)) 100 mg in 50 mls @ 100 mls/hr IVPB Q24H [facility] Stop: 12/08/18 13:59 Last Admin: 12/02/18 17:21 Dose: 100 mls/hr Morphine Sulfate (Morphine Cartridge Belt Puncher Adult* 5 Mg/Ml) 30 mls @ 0 mls/hr [employer] .change Q24H [facility]; Protocol Last Admin: 12/03/18 11:20 Dose: 1 mls/hr Morphine Sulfate (Morphine Inj ((Syringe))*) 2 mg IV Q4H PRN PRN Reason: PAIN - MILD Stop: 12/03/18 13:00 Last Admin: 11/28/18 20:17 Dose: 2 mg Morphine Sulfate (Morphine Vial*) 2 mg IV Q2H PRN PRN Reason: SEE COMMENTS Last Admin: 12/01/18 01:09 Dose: 2 mg Ofloxacin (Floxin 0.3% Otic.Maricruz*) 2 drop .SEE ORDER WEEKLY [facility] Triamcinolone Acetonide (Triamcinolone 0.025% Oint *) 1 applic TOPICAL DAILY PRN PRN Reason: RASH Vital Signs: Vital Signs: Temp Pulse Resp BP Pulse Ox 99.9 F 56 12 119/75 100 12/03/18 11:35 12/03/18 12:01 12/03/18 12:01 12/03/18 12:00 12/03/18 12:01 Patient Weight: Weight 40.8 kg Intake and Output: Intake & Output 01/09/19 01/10/19 01/11/19 01/12/19 06:59 06:59 06:59 06:59 Intake Total 2343 1694 1852 Balance 2343 1694 1852 Weight 42.732 kg 44 kg 40.8 kg Intake: IV Fluids 1101 1196 1655 ABX - VANCOMYCIN 26 ABX - ZOSYN 280 NS (0.9%) 0949 572 4336 IVPB 1222 498 197 ABX - VANCOMYCIN 787 43 ABX - ZOSYN 195 400 197 Calcium Gluconate 55 NaPh 240 Oral 20 Other: Estimated Void Large Large Medium Date of Last Bowel 11/30/18 12/02/2018 Movement # Bowel Movements 1 1 1 Estimated Stool Amount Large Small Large # Voids 1 1 1 ADLs: Meal Record Start: 11/27/18 17: 35 Freq: DAILY@0900,1400,1800 Status: Complete Protocol: Created 11/27/18 17:35 System (Rec: 11/27/18 17:35 System MED-C09) Document 11/28/18 09:00 [id number] (Rec: 11/28/18 12:05 [id number] MED-C09) Document 11/28/18 14:00 [id number] (Rec: 11/28/18 18:42 JJM1693 MED-C09) Document 11/28/18 18:00 KXY7632 (Rec: 11/28/18 21:03 [id number] MED-C09) ADLs: Meal Record Start: 11/29/18 10: 56 Freq: 09,13,18 Status: Active Protocol: Created 11/29/18 10:56 [id number] (Rec: 11/29/18 10:56 HTU2067 ICU-C07) Document 11/29/18 13:00 JSW0844 (Rec: 11/29/18 16:17 [id number] ICU-C07) Document 11/29/18 18:00 PWV8223 (Rec: 11/29/18 18:25 [id number] ICU-C07) Document 11/30/18 18:50 [id number] (Rec: 11/30/18 18:54 [id number] ICU-C06) Document 12/01/18 09:00 ZOQ4320 (Rec: 12/01/18 09:32 XLQ2388 ICU-M22) Document 12/01/18 13:00 ECW1507 (Rec: 12/01/18 16:05 GKE6504 ICU-C07) Document 12/01/18 19:00 [id number] (Rec: 12/01/18 23:19 FGK9401 ICU-C07) Document 12/02/18 09:00 QHX6182 (Rec: 12/02/18 12:15 ERY5009 ICU-C07) Document 12/02/18 13:00 EEK0855 (Rec: 12/02/18 14:34 UBT5876 ICU-C07) Document 12/02/18 18:00 BNI9355 (Rec: 12/02/18 18:19 COZ2838 ICU-M24) Intake and Output Start: 11/27/18 13: 03 Freq: Status: Active Protocol: Created 11/27/18 13:03 System (Rec: 11/27/18 13:03 System ED-C24) Intake and Output Start: 11/27/18 17: 35 Freq: DAILY@0600,1400,2200 Status: Active Protocol: Created 11/27/18 17:35 System (Rec: 11/27/18 17:35 System MED-C09) Document 11/27/18 22:00 [id number] (Rec: 11/27/18 22:19 WSA0990 MED-C09) Document 11/28/18 05:13 ITY2987 (Rec: 11/28/18 05:14 IHD1384 MED-C11) Document 11/28/18 14:00 PWK1107 (Rec: 11/28/18 18:42 WMX1415 MED-C09) Document 11/28/18 22:00 WGU9626 (Rec: 11/29/18 01:43 BLF1983 MED-C09) Document 11/29/18 04:04 SZR9288 (Rec: 11/29/18 04:05 NBF9718 MED-C09) Document 11/30/18 06:00 CJT0343 (Rec: 11/30/18 06:37 FRF8160 ICU-C07) Document 11/30/18 16:57 HFO6820 (Rec: 11/30/18 16:57 GWT3657 ICU-C06) Document 11/30/18 21:00 ZLQ3457 (Rec: 12/01/18 05:24 SFT4474 ICU-C07) Document 12/01/18 07:30 RDK0011 (Rec: 12/01/18 07:31 GKY1304 ICU-C06) Document 12/01/18 14:00 WZR7055 (Rec: 12/01/18 16:06 XSN0304 ICU-C07) Document 12/01/18 17:31 KWP5427 (Rec: 12/01/18 17:31 [id number] ICU-M22) Document 12/01/18 22:00 [id number] (Rec: 12/01/18 23:38 BEZ1330 ICU-C14) Document 12/02/18 01:57 SBA6951 (Rec: 12/02/18 01:57 TAH3320 ICU-C06) Document 12/02/18 05:14 [id number] (Rec: 12/02/18 05:14 ECP4051 ICU-C14) Document 12/02/18 14:00 QFY9301 (Rec: 12/02/18 14:35 [id number] ICU-C07) Document 12/03/18 00:32 WVR4868 (Rec: 12/03/18 00:32 PWA2551 ICU-C07) Document 12/03/18 05:50 ZPV1029 (Rec: 12/03/18 05:50 AVO2526 ICU-C07) Intake and Output Start: 11/29/18 10: 56 Freq: Q1HR Status: Complete Protocol: Created 11/29/18 10:56 [id number] (Rec: 11/29/18 10:56 ZBL8301 ICU-C07) Document 11/29/18 11:00 QZT6064 (Rec: 11/29/18 11:19 LIK0170 ICU-C07) Document 11/29/18 12:00 HXU5585 (Rec: 11/29/18 16:12 GOH4130 ICU-C07) Document 11/29/18 18:00 PXI2157 (Rec: 11/29/18 18:25 JYA9475 ICU-C07) Document 11/29/18 21:00 [id number] (Rec: 11/29/18 21:43 [id number] ICU-C07) Head: Normal Eyes: No Scleral Icterus Ears/Nose/Mouth/Throat: Mucous Membranes Moist Neck: NL Appearance and Movements; NL JVP Cardiovascular: RRR Respiratory: - - poor respiratory effort and crackles Abdominal: NL Sounds; No Tenderness; No Distention Extremities: No Edema - Assessment Assessment: 58yo female with Down Syndrome and worsening pneumonia family opting for comfort care - Plan Consult Plan (MU): Hospice Plan: Spoke with parents and [facility] nurse initially the mom wanted her daughter to go to [facility] but on further discussion she will stay at [facility] because the patient will be more comfortable there. She was worried about it being too hard on her daughter's caretakers but they do get grief counseling. [facility] is familiar with comfort care. Dr. Falcon completed the MOLST form with parents I also reviewed it with them. Patient is not expected to survive the wean from vapor therm and family is aware. If she should survive the plan is to go back to [facility]. If they change their minds and do pursue hospice care she should qualify under recurrent aspiration pneumonia, general decline and poor nutritional status with no g tube placement as per family. - Time On Unit Date of Evaluation: 12/03/18 Hospice Consult Time in: 11:00 Hospice Consult Time Out: 12:00 Hospice Consult Time Total: 60 > 50% of Time Spend In Counseling or Coordinating Care: Yes
[2018-12-03] MEDS: Fluconazole 100 MG IVPREMIX(*) 100 MG/50 ML BAG IVPB SCH (14:29)
[2018-12-03 16:31] VITALS: BP 119/92
[2018-12-03] MEDS: Morphine VIAL* 4 MG/ML VIAL (1 ml vial) IV PRN ×2 (16:45→19:06)
--- NOTE | 2018-12-03 22:38 | DS ---
DISCHARGE SUMMARY: DATE OF ADMISSION: 11/27/18 DATE OF DISCHARGE: 12/03/18 PRIMARY CARE PROVIDER: Dr. Yee. PRINCIPAL DIAGNOSIS: Sepsis and acute hypoxic respiratory failure secondary to probable aspiration pneumonia. SECONDARY DIAGNOSES: 1. Down syndrome. 2. Obsessive-compulsive disorder. 3. Hypothyroidism. 4. Hyperlipidemia. 5. Past cerebrovascular accident. HOSPITAL COURSE: Ms. Alcantara is a 58-year-old female with Down syndrome who was nonverbal at the time of admission, who presented to the emergency room with cough and congestion ongoing for few weeks. She was admitted for possible aspiration pneumonia. On 11/29/18, the patient was initially felt to be improving, however, later in the day developed increased work of breathing and stridor with upper airway noises. She was given racemic epi x2 with minimal improvement. She was started on IV steroids. She was ultimately transferred to the ICU for Vapotherm. By 11/30/18, stridor resolved and attempts were being made to wean the Vapotherm. On 12/01/18, the patient was felt to be more somnolent. A nasal trumpet was placed. On 12/02/18, the patient was no longer responding to voice or light touch. She continued to have cough and labored breathing on Vapotherm. At that point, comfort care request was made by the patient's parents. As the patient was a resident of the [facility], [employer] became involved. A MOLST form was ultimately filled out and non-objection letters were obtained from [facility]. The patient was on a morphine drip for comfort due to increased work of breathing. I was notified by nursing several times on the evening of 12/03/18 that the patient was visibly in distress despite the morphine drip. The basal rate of morphine was increased which did not help, and therefore, the bolus dose of morphine was increased. The patient ultimately became asystolic at 2048 on 12/03/18. CAUSE OF : Acute hypoxic respiratory failure secondary to probable aspiration pneumonia. TIME SPENT: Twenty minutes were spent on this discharge. [id number]/[facility] #: [id number] MTDD
== END 2018-12-03 20:49 | disposition expired | DRG 871 ==
LOC: ED 12:56 → MED 15:27 → ICU 11-29 10:41
PROVIDERS: ADMIT Internal Medicine; ATTEND Hospitalist
PROC: 5A09457 Assistance with Respiratory Ventilation, 24-96 Consecutive Hours, Continuous Positive Airway Pressure (ICD-10-PCS; principal; 2018-11-29)
DX: A41.9 Sepsis, unspecified organism (principal); J69.0 Pneumonitis due to inhalation of food and vomit; J96.01 Acute respiratory failure with hypoxia; Q90.9 Down syndrome, unspecified; F42.9 Obsessive-compulsive disorder, unspecified; E03.9 Hypothyroidism, unspecified; E78.5 Hyperlipidemia, unspecified; G62.9 Polyneuropathy, unspecified; Z66 Do not resuscitate; G47.33 Obstructive sleep apnea (adult) (pediatric); R73.9 Hyperglycemia, unspecified; E83.39 Other disorders of phosphorus metabolism; E83.51 Hypocalcemia; M81.0 Age-related osteoporosis without current pathological fracture; Z79.82 Long term (current) use of aspirin; Z79.891 Long term (current) use of opiate analgesic; Z79.899 Other long term (current) drug therapy; Z86.73 Personal history of transient ischemic attack (TIA), and cerebral infarction without residual deficits
CPT/HCPCS: 36415; 36600; 71045; 71046; 80048; 80053; 80202; 81003; 82803; 83605; 83735; 83880; 84100; 84145; 84484; 85025; 85027; 86140; 87040; 87070; 87205; 87641; 93005; 94640; 94667; 94668; 99285; A9270-GY; J0610; J1450; J1650; J1940; J2270; J2543; J2920; J2930; J3370